=== PATIENT | male | born 1950 | race Caucasian/White ===

== ENCOUNTER 2017-12-16 16:56 | Emergency (ER) | payer MEDICARE, MEDICAID ==
[~2017-12-16] VITALS: Ht 175.3 cm; Wt 170.6 kg
[~2017-12-16 16:56] MED LIST: ACET-1008 PO; AMLO1CAP59 PO; COU1T PO; COU5T PO; DOCU100C40 PO; DULO-31 PO; DULR RC; FURO-150 PO; GABA-330 PO; LACT10SO PO; LEVO150T62 PO; MAGN-64 PO; NORCO10T PO; POLY17PO10 PO; SOTA80TA69 PO; ZOC40T PO; ZOLP10TA5 PO
[2017-12-16 19:26] LABS: BASOPHILS % (AUTO) 0.1 % (0-1); EOSINOPHILS # (AUTO) 0.3 X10'3 (0-0.9); EOSINOPHILS % (AUTO) 3.6 % (0-6); HEMATOCRIT 47.2 % (42.0-52.0); HEMOGLOBIN 15.8 g/dl (14.0-17.9); LYMPHOCYTES % (AUTO) 11.5 % (21-51); MEAN CORPUSCULAR HEMOGLOBIN 29.3 PG (27.0-31.0); MEAN CORPUSCULAR HGB CONC 33.4 % (33.0-36.5); MEAN CORPUSCULAR VOLUME 87.7 FL (78-98); MEAN PLATELET VOLUME 8.4 FL (7.4-10.4); MONOCYTES # (AUTO) 0.5 X10'3 (0-0.9); MONOCYTES % (AUTO) 5.1 % (2-12); NEUTROPHILS # (AUTO) 7.3 X10'3 (1.8-7.7); NEUTROPHILS % (AUTO) 79.7 % (42-75); PLATELET COUNT 174 X10'3 (140-440); RED BLOOD COUNT 5.39 X10'6 (4.70-6.10); RED CELL DISTRIBUTION WIDTH 15.3 % (11.5-14.5); WHITE BLOOD COUNT 9.1 X10'3 (4.5-11.0)
[2017-12-16 19:46] LABS: ALANINE AMINOTRANSFERASE 33 U/L (12-78); ALBUMIN 3.3 G/DL (3.4-5.0); ALBUMIN/GLOBULIN RATIO 0.7 (1.1-1.5); ALKALINE PHOSPHATASE 122 IU/L (46-116); ANION GAP 6 (8-16); ASPARTATE AMINO TRANSFERASE 25 U/L (10-37); BILIRUBIN,TOTAL 0.4 MG/DL (0.1-1.0); BLOOD UREA NITROGEN 26 MG/DL (7-18); BUN/CREATININE RATIO 21.5 (5.4-32.0); CALCIUM 8.8 MG/DL (8.5-10.1); CHLORIDE 99 MMOL/L (99-107); CREATININE 1.21 MG/DL (0.60-1.10); GLUCOSE 163 MG/DL (70-104); SODIUM 142 MMOL/L (135-145); TOTAL CARBON DIOXIDE 36.7 MMOL/L (24-32); TOTAL PROTEIN 7.9 G/DL (6.4-8.2); eGFR 60 ML/MIN
[2017-12-16] MEDS ORDERED: nystatin 15 GM powder TP STA (20:44)
[2017-12-16] MEDS ORDERED: CefTRIAXone 2gm/NS 100ml IVPB 100 ML IV ONE (20:45)
[2017-12-16] MEDS ORDERED: furosemide 10 MG/1 ML 10ml inj IV ONE (20:45)
[2017-12-16] MEDS ORDERED: potassium Cl 20 mEq SR tablet PO ONE (21:05)
[2017-12-16 21:20] LABS: CLARITY,URINE CLEAR (Clear); COLOR,URINE YELLOW (Yellow); GLUCOSE, URINE NEGATIVE (Neg); KETONES,URINE NEGATIVE (Neg); LEUKOCYTE ESTERASE ,URINE NEGATIVE (Neg); NITRITES, URINE NEGATIVE (Neg); OCCULT BLOOD,URINE NEGATIVE (Neg); PH,URINE 5.5 (4.8-8.0); PROTEIN,URINE NEGATIVE (Neg); UROBILINOGEN,URINE 0.2 E.U/dL (0.2-1.0)
[2017-12-16 21:27] LABS: UA COLLECTION TYPE CLN CATCH MIDSTREAM
[2017-12-16] MEDS ORDERED: MUPI22OI30 TOP (21:57)
[2017-12-16] MEDS ORDERED: POTA10TA10 PO (21:57)
[2017-12-16] MEDS ORDERED: NYSPWD TP (21:57)
[2017-12-16] MEDS ORDERED: CEPH500C2 PO (21:57)
[2017-12-16 22:23] VITALS: BP 165/111
== END 2017-12-16 22:37 | disposition home or self-care (01) ==
LOC: ER 16:58
DX: L03.116 Cellulitis of left lower limb (principal); L03.115 Cellulitis of right lower limb; I89.0 Lymphedema, not elsewhere classified; E87.6 Hypokalemia; B37.2 Candidiasis of skin and nail; I48.91 Unspecified atrial fibrillation; E78.00 Pure hypercholesterolemia, unspecified; I10 Essential (primary) hypertension; Z86.73 Personal history of transient ischemic attack (TIA), and cerebral infarction without residual deficits; Z86.718 Personal history of other venous thrombosis and embolism; Z98.890 Other specified postprocedural states; Z96.89 Presence of other specified functional implants; Z79.899 Other long term (current) drug therapy; Z79.01 Long term (current) use of anticoagulants
CPT/HCPCS: 36415; 80053; 81003; 83880; 85025; 96365; 96375; 99284; J0696; J1940

== ENCOUNTER 2019-01-30 20:57 | Inpatient (IN) | payer MEDICARE, MEDICAID | END 2019-02-02 16:45 | disposition home health service (06) | LOC: ER 20:57 → PCU 3S 01-31 07:23 | DX: A41.9 Sepsis, unspecified organism (principal); J18.1 Lobar pneumonia, unspecified organism; J96.01 Acute respiratory failure with hypoxia ==

== ENCOUNTER 2023-11-28 20:00 | Inpatient (IN) | payer MEDICARE, MEDICAID ==
[~2023-11-28] VITALS: Ht 182.9 cm; Wt 145.0 kg
[~2023-11-28 20:00] MED LIST changes: -AMLO1CAP59 PO; -COU1T PO; -COU5T PO; -DOCU100C40 PO; -DULR RC; +EMOL454C5 TOP; +FAMO20TA8 PO; -GABA-330 PO; +HYDR28CR14 TOP; -LACT10SO PO; +LISI10TA27 PO; -MAGN-64 PO; -NORCO10T PO; +POTA-192 PO; +RIVA20TA PO; +SIMV-42 PO; -SOTA80TA69 PO; -ZOC40T PO; -ZOLP10TA5 PO
[2023-11-28] MEDS: normal saline 1000ml 1,000 ML IV ONE (20:21)
[2023-11-28] MEDS: CefTRIAXone 2gm/D5W 50ml BAG 50 ML IV ONE (20:30)
[2023-11-28 20:46] LABS: BASOPHILS # (AUTO) 0.1 X10'3 (0-0.2); BASOPHILS % (AUTO) 0.5 % (0-1); EOSINOPHILS # (AUTO) 0.1 X10'3 (0-0.9); EOSINOPHILS % (AUTO) 1.3 % (0-6); HEMATOCRIT 50.1 % (42.0-52.0); HEMOGLOBIN 16.8 g/dl (14.0-17.9); LYMPHOCYTES # (AUTO) 1.7 X10'3 (1.1-4.8); LYMPHOCYTES % (AUTO) 16.6 % (21-51); MEAN CORPUSCULAR HGB CONC 33.4 g/dL (33.0-36.5); MEAN CORPUSCULAR VOLUME 92.8 FL (78-98); MEAN PLATELET VOLUME 8.4 FL (7.4-10.4); MONOCYTES # (AUTO) 0.3 X10'3 (0-0.9); MONOCYTES % (AUTO) 2.8 % (2-12); NEUTROPHILS # (AUTO) 8.2 X10'3 (1.8-7.7); NEUTROPHILS % (AUTO) 78.8 % (42-75); PLATELET COUNT 197 X10'3 (140-440); WHITE BLOOD COUNT 10.5 X10'3 (4.5-11.0)
[2023-11-28 20:53] LABS: ALANINE AMINOTRANSFERASE 25 U/L (12-78); ALBUMIN 3.2 G/DL (3.4-5.0); ALBUMIN/GLOBULIN RATIO 0.7 (1.1-1.5); ALKALINE PHOSPHATASE 97 IU/L (46-116); ANION GAP 8 (8-16); ASPARTATE AMINO TRANSFERASE 29 U/L (10-37); BILIRUBIN,TOTAL 1.1 MG/DL (0.1-1.0); BLOOD UREA NITROGEN 19 MG/DL (7-18); BUN/CREATININE RATIO 13.7 (10.0-20.0); CALCIUM 9.2 MG/DL (8.5-10.1); CHLORIDE 106 MMOL/L (99-107); CREATININE 1.39 MG/DL (0.60-1.10); GLUCOSE 200 MG/DL (70-104); POTASSIUM 3.5 MMOL/L (3.5-5.1); SODIUM 147 MMOL/L (135-145); TOTAL CARBON DIOXIDE 33.4 MMOL/L (24-32); TOTAL PROTEIN 7.6 G/DL (6.4-8.2); eCRCL 51 ML/MIN; eGFR 50 ML/MIN
[2023-11-28 21:01] LABS: PRO BRAIN NATRIURETIC PEPTIDE 714 PG/ML (0-125)
[2023-11-28] MEDS ORDERED: acetaminophen 325mg tablet PO ONE (23:10)
[2023-11-28] MEDS: normal saline 1000ML IV soln IVB ONE (23:39)
[2023-11-29] VITALS (9 sets, daily range): BP systolic 108–152; BP diastolic 60–86; PULSE 67–90; RESP 11–22; TEMP 97.7–97.9; O2SAT 92–99
[2023-11-29] MEDS: acetaminophen 325mg tablet PO ONE ×2 (00:05→00:18)
[2023-11-29 00:40] LABS: BILIRUBIN,URINE SMALL (Neg); CLARITY,URINE CLEAR (Clear); COLOR,URINE AMBER (Yellow); GLUCOSE, URINE 100 mg/dl (Neg); KETONES,URINE NEGATIVE (Neg); LEUKOCYTE ESTERASE ,URINE NEGATIVE (Neg); NITRITES, URINE NEGATIVE (Neg); OCCULT BLOOD,URINE TRACE-INTACT (Neg); PH,URINE 6.5 (4.8-8.0); PROTEIN,URINE 100 mg/dl (Neg)
[2023-11-29] MEDS ORDERED: magnesium hydroxide 30ml (MOM) UD suspension PO PRN (00:45)
[2023-11-29] MEDS ORDERED: magnesium 2GM in 50ml NS 50 ML IV PRN (00:45)
[2023-11-29] MEDS ORDERED: ondansetron/PF 4mg/2ml inj IV PRN (00:45)
[2023-11-29] MEDS ORDERED: magnesium 4gm in 100ml NS 100 ML IV PRN (00:45)
[2023-11-29] MEDS ORDERED: normal saline 1000ml 1,000 ML IV SCH (00:45)
[2023-11-29] MEDS ORDERED: potassium Cl 20 mEq SR tablet PO PRN ×2 (00:45)
[2023-11-29] MEDS ORDERED: mag hydrox/Alum hydrox/simeth 30ml oral suspension PO PRN (00:45)
[2023-11-29] MEDS ORDERED: magnesium Cl slow-release 64mg tablet PO PRN (00:45)
[2023-11-29] MEDS ORDERED: acetaminophen 650mg rectal suppository RC PRN (00:45)
[2023-11-29] MEDS ORDERED: potassium Cl 40MEQ/1/2NS 520ml 520 ML IV PRN (00:45)
[2023-11-29] MEDS ORDERED: acetaminophen 325mg tablet PO PRN (00:45)
[2023-11-29 00:49] LABS: UA COLLECTION TYPE FOLEY CATH
[2023-11-29] MEDS: normal saline 500ml IV soln 500 ML IV ONE (00:50)
[2023-11-29] MEDS ORDERED: LOP12.5T PO (00:59)
[2023-11-29 01:00] LABS: MUCUS STRANDS FEW /LPF (Neg)
[2023-11-29 01:03] LABS: WBC,URINE 0-4 /HPF (0-4)
[2023-11-29 01:06] LABS: SQUAMOUS EPITHELIAL CELL,UR FEW /LPF (FEW)
[2023-11-29 01:07] LABS: TRANSITIONAL EPI CELLS,URINE FEW /HPF
[2023-11-29 01:10] LABS: BACTERIA,URINE FEW /HPF (Neg)
[2023-11-29 01:30] LABS: D-DIMER 6.96 MG/L FEU (0-0.50)
[2023-11-29] MEDS: dextrose 5%-water 1,000 ML IV SCH (01:50)
[2023-11-29 02:33] LABS: CREATINE KINASE 117 U/L (39-308); LIPASE 30 U/L (16-77); THYROID STIMULATING HORMONE 1.24 ulU/ml (0.34-4.50)
[2023-11-29] MEDS: ipratropium/albuterol 3ml nebule NEB SCH (04:55)
[2023-11-29] MEDS: K and/or MAG REPLACEMENT MC SCH (08:00)
[2023-11-29 08:12] LABS: APTT 33 SECONDS (22-32); INR 1.5 INR; PROTHROMBIN TIME 15.5 SECONDS (9.0-12.0)
[2023-11-29] MEDS ORDERED: iohexol 350MG/ML 100ml bottle IV ONE (09:51)
[2023-11-29] MEDS: CefTRIAXone/D5W-Rocephin 1gm 50 ML IV SCH (10:28)
[2023-11-29] MEDS: azithromycin/NS 500mg/250ml 250 ML IV SCH (10:28)
[2023-11-29] MEDS: famotidine 20mg tablet PO SCH (10:30)
[2023-11-29] MEDS: levoTHYROXINE 100mcg tablet PO SCH (10:30)
[2023-11-29 11:23] LABS: BASOPHILS % (AUTO) 0.4 % (0-1); EOSINOPHILS # (AUTO) 0.1 X10'3 (0-0.9); HEMATOCRIT 44.5 % (42.0-52.0); HEMOGLOBIN 14.6 g/dl (14.0-17.9); MEAN CORPUSCULAR HEMOGLOBIN 30.9 PG (27.0-31.0); MEAN CORPUSCULAR HGB CONC 32.9 g/dL (33.0-36.5); MEAN PLATELET VOLUME 8.4 FL (7.4-10.4); MONOCYTES # (AUTO) 0.7 X10'3 (0-0.9); MONOCYTES % (AUTO) 7.7 % (2-12); NEUTROPHILS % (AUTO) 79.9 % (42-75); PLATELET COUNT 146 X10'3 (140-440); RED BLOOD COUNT 4.73 X10'6 (4.70-6.10); RED CELL DISTRIBUTION WIDTH 14.6 % (11.5-14.5); WHITE BLOOD COUNT 8.8 X10'3 (4.5-11.0)
[2023-11-29 11:48] LABS: ALANINE AMINOTRANSFERASE 21 U/L (12-78); ALBUMIN 2.6 G/DL (3.4-5.0); ALBUMIN/GLOBULIN RATIO 0.7 (1.1-1.5); ALKALINE PHOSPHATASE 80 IU/L (46-116); ANION GAP 7 (8-16); ASPARTATE AMINO TRANSFERASE 34 U/L (10-37); BILIRUBIN,TOTAL 0.6 MG/DL (0.1-1.0); BLOOD UREA NITROGEN 22 MG/DL (7-18); BUN/CREATININE RATIO 18.6 (10.0-20.0); CALCIUM 7.9 MG/DL (8.5-10.1); CHLORIDE 110 MMOL/L (99-107); CREATININE 1.18 MG/DL (0.60-1.10); GLUCOSE 139 MG/DL (70-104); POTASSIUM 4.1 MMOL/L (3.5-5.1); SODIUM 149 MMOL/L (135-145); TOTAL CARBON DIOXIDE 31.9 MMOL/L (24-32); TOTAL PROTEIN 6.3 G/DL (6.4-8.2); eCRCL 60 ML/MIN; eGFR 60 ML/MIN
[2023-11-29] MEDS: rivaroxaban 20mg tablet PO SCH (17:50)
[2023-11-29] MEDS: atorvastatin 10mg tablet PO SCH (20:09)
[2023-11-29] MEDS ORDERED: ipratropium/albuterol 3ml nebule NEB PRN (21:25)
[2023-11-30] VITALS (12 sets, daily range): BP systolic 119–153; BP diastolic 68–91; PULSE 64–87; RESP 13–18; TEMP 97.2–98.2; O2SAT 93–99
[2023-11-30 07:03] LABS: ALANINE AMINOTRANSFERASE 23 U/L (12-78); ALBUMIN 2.9 G/DL (3.4-5.0); ALBUMIN/GLOBULIN RATIO 0.8 (1.1-1.5); ALKALINE PHOSPHATASE 78 IU/L (46-116); ANION GAP 1 (8-16); ASPARTATE AMINO TRANSFERASE 29 U/L (10-37); BILIRUBIN,TOTAL 0.5 MG/DL (0.1-1.0); BLOOD UREA NITROGEN 22 MG/DL (7-18); BUN/CREATININE RATIO 21.6 (10.0-20.0); CALCIUM 8.7 MG/DL (8.5-10.1); CHLORIDE 110 MMOL/L (99-107); CREATININE 1.02 MG/DL (0.60-1.10); GLUCOSE 125 MG/DL (70-104); POTASSIUM 4.6 MMOL/L (3.5-5.1); SODIUM 147 MMOL/L (135-145); TOTAL CARBON DIOXIDE 36.4 MMOL/L (24-32); TOTAL PROTEIN 6.6 G/DL (6.4-8.2); eCRCL 70 ML/MIN; eGFR 71 ML/MIN
[2023-11-30 07:11] LABS: BASOPHILS % (AUTO) 0.5 % (0-1); EOSINOPHILS # (AUTO) 0.2 X10'3 (0-0.9); EOSINOPHILS % (AUTO) 2.2 % (0-6); HEMOGLOBIN 14.2 g/dl (14.0-17.9); LYMPHOCYTES # (AUTO) 1.5 X10'3 (1.1-4.8); LYMPHOCYTES % (AUTO) 15.4 % (21-51); MEAN CORPUSCULAR VOLUME 94.1 FL (78-98); MEAN PLATELET VOLUME 8.7 FL (7.4-10.4); MONOCYTES # (AUTO) 0.8 X10'3 (0-0.9); MONOCYTES % (AUTO) 7.7 % (2-12); NEUTROPHILS # (AUTO) 7.3 X10'3 (1.8-7.7); NEUTROPHILS % (AUTO) 74.2 % (42-75); PLATELET COUNT 139 X10'3 (140-440); RED BLOOD COUNT 4.57 X10'6 (4.70-6.10); RED CELL DISTRIBUTION WIDTH 14.6 % (11.5-14.5); WHITE BLOOD COUNT 9.9 X10'3 (4.5-11.0)
[2023-11-30 07:19] LABS: C DIFF ANTIGEN NEGATIVE (NEGATIVE); C DIFF SPECIMEN=DIARRHEA? ACCEPTABLE; C DIFFICILE TOXINS A&B NEGATIVE (Neg)
[2023-12-01] VITALS (10 sets, daily range): BP systolic 93–150; BP diastolic 49–94; PULSE 63–89; RESP 12–24; TEMP 97.7–98; O2SAT 92–97
[2023-12-01 17:10] LABS: BASOPHILS # (AUTO) 0.3 X10'3 (0-0.2); EOSINOPHILS # (AUTO) 0.3 X10'3 (0-0.9); EOSINOPHILS % (AUTO) 3.8 % (0-6); HEMATOCRIT 41.3 % (42.0-52.0); HEMOGLOBIN 13.8 g/dl (14.0-17.9); LYMPHOCYTES # (AUTO) 1.2 X10'3 (1.1-4.8); LYMPHOCYTES % (AUTO) 16.8 % (21-51); MEAN CORPUSCULAR HEMOGLOBIN 31.1 PG (27.0-31.0); MEAN CORPUSCULAR HGB CONC 33.4 g/dL (33.0-36.5); MEAN PLATELET VOLUME 8.5 FL (7.4-10.4); MONOCYTES # (AUTO) 0.5 X10'3 (0-0.9); MONOCYTES % (AUTO) 6.9 % (2-12); NEUTROPHILS # (AUTO) 4.9 X10'3 (1.8-7.7); NEUTROPHILS % (AUTO) 68.5 % (42-75); PLATELET COUNT 137 X10'3 (140-440); RED BLOOD COUNT 4.44 X10'6 (4.70-6.10); RED CELL DISTRIBUTION WIDTH 14.8 % (11.5-14.5); WHITE BLOOD COUNT 7.1 X10'3 (4.5-11.0)
[2023-12-01 17:24] LABS: ALANINE AMINOTRANSFERASE 22 U/L (12-78); ALBUMIN 2.5 G/DL (3.4-5.0); ALBUMIN/GLOBULIN RATIO 0.7 (1.1-1.5); ALKALINE PHOSPHATASE 79 IU/L (46-116); ANION GAP 3 (8-16); ASPARTATE AMINO TRANSFERASE 22 U/L (10-37); BILIRUBIN,TOTAL 0.3 MG/DL (0.1-1.0); BLOOD UREA NITROGEN 11 MG/DL (7-18); BUN/CREATININE RATIO 12.8 (10.0-20.0); CALCIUM 8.2 MG/DL (8.5-10.1); CHLORIDE 110 MMOL/L (99-107); CREATININE 0.86 MG/DL (0.60-1.10); GLUCOSE 116 MG/DL (70-104); POTASSIUM 4.2 MMOL/L (3.5-5.1); SODIUM 144 MMOL/L (135-145); TOTAL CARBON DIOXIDE 30.9 MMOL/L (24-32); TOTAL PROTEIN 6.2 G/DL (6.4-8.2); eCRCL 83 ML/MIN; eGFR 87 ML/MIN
[2023-12-02] VITALS (7 sets, daily range): BP systolic 121–165; BP diastolic 72–95; PULSE 64–84; RESP 16–22; TEMP 97.3–98.4; O2SAT 90–96
[2023-12-02 06:52] LABS: BASOPHILS % (AUTO) 0.7 % (0-1); EOSINOPHILS # (AUTO) 0.2 X10'3 (0-0.9); EOSINOPHILS % (AUTO) 3.5 % (0-6); HEMATOCRIT 40.9 % (42.0-52.0); HEMOGLOBIN 13.6 g/dl (14.0-17.9); LYMPHOCYTES # (AUTO) 1.6 X10'3 (1.1-4.8); LYMPHOCYTES % (AUTO) 23.2 % (21-51); MEAN CORPUSCULAR HEMOGLOBIN 30.9 PG (27.0-31.0); MEAN CORPUSCULAR HGB CONC 33.2 g/dL (33.0-36.5); MEAN CORPUSCULAR VOLUME 93.2 FL (78-98); MEAN PLATELET VOLUME 8.2 FL (7.4-10.4); MONOCYTES # (AUTO) 0.5 X10'3 (0-0.9); MONOCYTES % (AUTO) 7.9 % (2-12); NEUTROPHILS # (AUTO) 4.3 X10'3 (1.8-7.7); NEUTROPHILS % (AUTO) 64.7 % (42-75); PLATELET COUNT 135 X10'3 (140-440); RED BLOOD COUNT 4.39 X10'6 (4.70-6.10); RED CELL DISTRIBUTION WIDTH 14.7 % (11.5-14.5); WHITE BLOOD COUNT 6.7 X10'3 (4.5-11.0)
[2023-12-02 07:10] LABS: ALANINE AMINOTRANSFERASE 19 U/L (12-78); ALBUMIN 2.3 G/DL (3.4-5.0); ALBUMIN/GLOBULIN RATIO 0.6 (1.1-1.5); ALKALINE PHOSPHATASE 70 IU/L (46-116); ANION GAP 4 (8-16); ASPARTATE AMINO TRANSFERASE 17 U/L (10-37); BILIRUBIN,TOTAL 0.4 MG/DL (0.1-1.0); BLOOD UREA NITROGEN 11 MG/DL (7-18); BUN/CREATININE RATIO 13.4 (10.0-20.0); CALCIUM 8.4 MG/DL (8.5-10.1); CHLORIDE 110 MMOL/L (99-107); CREATININE 0.82 MG/DL (0.60-1.10); GLUCOSE 95 MG/DL (70-104); POTASSIUM 4.1 MMOL/L (3.5-5.1); SODIUM 144 MMOL/L (135-145); TOTAL CARBON DIOXIDE 30.4 MMOL/L (24-32); TOTAL PROTEIN 6.1 G/DL (6.4-8.2); eCRCL 87 ML/MIN; eGFR > 90 ML/MIN
[2023-12-02 11:16] LABS: ABG HCO3 30.7 mmol/L (22.0-26.0); ABG OXYGEN SATURATION 90.8 % (94-97); ABG PCO2 (T) 53.9 mmHg (35.0-48.0); ABG PH (T) 7.373 (7.340-7.440); ABG PO2 (T) 60.5 mmHg (75.0-100.0); ALLEN'S TEST POSITIVE; FCOHb 0.8 % (0.0-3.9); FHHb 9.1 % (0.0-5.0); FO2Hb 90.1 % (94-97); MODE RA; TOTAL HEMOGLOBIN 14.7 G/dl (14.0-17.9)
[2023-12-03 02:00] VITALS: BP 163/105; PULSE 64; RESP 18; TEMP 98.4; O2SAT 93
[2023-12-03 06:00] VITALS: BP 143/93; PULSE 70; RESP 12; TEMP 98.1; O2SAT 97
[2023-12-03 07:17] LABS: BASOPHILS # (AUTO) 0.1 X10'3 (0-0.2); BASOPHILS % (AUTO) 0.7 % (0-1); EOSINOPHILS # (AUTO) 0.2 X10'3 (0-0.9); HEMATOCRIT 42.9 % (42.0-52.0); HEMOGLOBIN 14.4 g/dl (14.0-17.9); LYMPHOCYTES # (AUTO) 1.4 X10'3 (1.1-4.8); LYMPHOCYTES % (AUTO) 19.1 % (21-51); MEAN CORPUSCULAR HEMOGLOBIN 30.9 PG (27.0-31.0); MEAN CORPUSCULAR HGB CONC 33.5 g/dL (33.0-36.5); MEAN CORPUSCULAR VOLUME 92.2 FL (78-98); MEAN PLATELET VOLUME 8.3 FL (7.4-10.4); MONOCYTES # (AUTO) 0.6 X10'3 (0-0.9); MONOCYTES % (AUTO) 8.1 % (2-12); NEUTROPHILS # (AUTO) 5.1 X10'3 (1.8-7.7); NEUTROPHILS % (AUTO) 69.1 % (42-75); PLATELET COUNT 148 X10'3 (140-440); RED BLOOD COUNT 4.66 X10'6 (4.70-6.10); RED CELL DISTRIBUTION WIDTH 14.1 % (11.5-14.5); WHITE BLOOD COUNT 7.3 X10'3 (4.5-11.0)
[2023-12-03 07:35] LABS: ALANINE AMINOTRANSFERASE 21 U/L (12-78); ALBUMIN 2.4 G/DL (3.4-5.0); ALBUMIN/GLOBULIN RATIO 0.6 (1.1-1.5); ALKALINE PHOSPHATASE 78 IU/L (46-116); ANION GAP 6 (8-16); ASPARTATE AMINO TRANSFERASE 20 U/L (10-37); BILIRUBIN,TOTAL 0.4 MG/DL (0.1-1.0); BLOOD UREA NITROGEN 11 MG/DL (7-18); BUN/CREATININE RATIO 15.5 (10.0-20.0); CALCIUM 8.3 MG/DL (8.5-10.1); CHLORIDE 109 MMOL/L (99-107); CREATININE 0.71 MG/DL (0.60-1.10); GLUCOSE 97 MG/DL (70-104); POTASSIUM 3.9 MMOL/L (3.5-5.1); SODIUM 145 MMOL/L (135-145); TOTAL CARBON DIOXIDE 30.5 MMOL/L (24-32); TOTAL PROTEIN 6.4 G/DL (6.4-8.2); eCRCL 100 ML/MIN; eGFR > 90 ML/MIN
[2023-12-03] MEDS: lisinopril 5mg tablet PO SCH (09:13)
[2023-12-03 10:21] VITALS: PULSE 90; RESP 18; O2SAT 90
[2023-12-03 11:00] VITALS: BP 126/85; PULSE 92; RESP 16; TEMP 97; O2SAT 94
[2023-12-03] MEDS ORDERED: metoprolol tartrate 12.5mg (1/2 tablet) PO SCH (20:00)
== END 2023-12-03 15:57 | DRG 871 ==
LOC: ER 20:01 → ED HOLD 11-29 00:47 → PCU 3S 11-29 09:30
PROVIDERS: ADMIT Family Medicine; ATTEND Internal Medicine
PROC: B32T1ZZ Computerized Tomography (CT Scan) of Left Pulmonary Artery using Low Osmolar Contrast (ICD-10-PCS; principal; 2023-11-29)
PROC: B3201ZZ Computerized Tomography (CT Scan) of Thoracic Aorta using Low Osmolar Contrast (ICD-10-PCS; 2023-11-29)
PROC: B32S1ZZ Computerized Tomography (CT Scan) of Right Pulmonary Artery using Low Osmolar Contrast (ICD-10-PCS; 2023-11-29)
DX: A41.9 Sepsis, unspecified organism (principal); J18.9 Pneumonia, unspecified organism; J96.01 Acute respiratory failure with hypoxia; N17.0 Acute kidney failure with tubular necrosis; E87.0 Hyperosmolality and hypernatremia; Z68.41 Body mass index [BMI] 40.0-44.9, adult; I11.0 Hypertensive heart disease with heart failure; I48.91 Unspecified atrial fibrillation; I50.9 Heart failure, unspecified; E78.00 Pure hypercholesterolemia, unspecified; E03.9 Hypothyroidism, unspecified; Z20.822 Contact with and (suspected) exposure to COVID-19; I95.9 Hypotension, unspecified; F32.A Depression, unspecified; E66.01 Morbid (severe) obesity due to excess calories; G47.33 Obstructive sleep apnea (adult) (pediatric); K21.9 Gastro-esophageal reflux disease without esophagitis; E86.0 Dehydration; Z86.73 Personal history of transient ischemic attack (TIA), and cerebral infarction without residual deficits; Z95.0 Presence of cardiac pacemaker; Z86.718 Personal history of other venous thrombosis and embolism; Z79.01 Long term (current) use of anticoagulants; Z79.899 Other long term (current) drug therapy
CPT/HCPCS: 36415; 36600; 70450; 71045; 71275; 80053; 81001; 81003; 82550; 82803; 83605; 83690; 83880; 84145; 84443; 84484; 85018; 85025; 85379; 85610; 85730; 87040; 87324; 87449; 87502; 87503; 87634; 87811; 93005; 93880; 94640; 94760; 97110; 97161; 97530; 99285; A4615; A6212; A6213; G0378; J0456; J0696; J3490; J7030; J7040; J7070; Q9967

== ENCOUNTER 2024-05-26 14:41 | Emergency (ER) | payer MEDICARE, MEDICAID ==
[~2024-05-26] VITALS: Ht 182.9 cm; Wt 158.4 kg
[~2024-05-26 14:41] MED LIST changes: -ACET-1008 PO; -DULO-31 PO; -EMOL454C5 TOP; -HYDR28CR14 TOP; +LOP12.5T PO; -POLY17PO10 PO
[2024-05-26] MEDS: normal saline 1000ML IV soln IV ONE (14:55)
[2024-05-26 15:12] LABS: BILIRUBIN,URINE NEGATIVE (Neg); CLARITY,URINE CLEAR (Clear); COLOR,URINE YELLOW (Yellow); GLUCOSE, URINE NEGATIVE (Neg); KETONES,URINE NEGATIVE (Neg); LEUKOCYTE ESTERASE ,URINE NEGATIVE (Neg); NITRITES, URINE NEGATIVE (Neg); OCCULT BLOOD,URINE NEGATIVE (Neg); PROTEIN,URINE NEGATIVE (Neg); UROBILINOGEN,URINE 0.2 E.U/dL (0.2-1.0)
[2024-05-26 15:53] LABS: BASOPHILS % (AUTO) 0.3 % (0-1); EOSINOPHILS # (AUTO) 0.1 X10'3 (0-0.9); EOSINOPHILS % (AUTO) 0.9 % (0-6); HEMATOCRIT 46.2 % (42.0-52.0); HEMOGLOBIN 15.3 g/dl (14.0-17.9); LYMPHOCYTES % (AUTO) 8.9 % (21-51); MEAN CORPUSCULAR HEMOGLOBIN 30.4 PG (27.0-31.0); MEAN CORPUSCULAR HGB CONC 33.1 g/dL (33.0-36.5); MEAN CORPUSCULAR VOLUME 92.1 FL (78-98); MEAN PLATELET VOLUME 8.1 FL (7.4-10.4); MONOCYTES # (AUTO) 0.7 X10'3 (0-0.9); MONOCYTES % (AUTO) 6.4 % (2-12); NEUTROPHILS # (AUTO) 9.1 X10'3 (1.8-7.7); NEUTROPHILS % (AUTO) 83.5 % (42-75); PLATELET COUNT 196 X10'3 (140-440); RED BLOOD COUNT 5.01 X10'6 (4.70-6.10); RED CELL DISTRIBUTION WIDTH 14.8 % (11.5-14.5); WHITE BLOOD COUNT 10.9 X10'3 (4.5-11.0)
[2024-05-26 15:54] LABS: UA COLLECTION TYPE CLN CATCH MIDSTREAM
[2024-05-26 16:08] LABS: ALANINE AMINOTRANSFERASE 17 U/L (12-78); ALBUMIN 2.8 G/DL (3.4-5.0); ALBUMIN/GLOBULIN RATIO 0.7 (1.1-1.5); ALKALINE PHOSPHATASE 67 IU/L (46-116); ANION GAP 1 (8-16); ASPARTATE AMINO TRANSFERASE 19 U/L (10-37); BILIRUBIN,TOTAL 0.6 MG/DL (0.1-1.0); BLOOD UREA NITROGEN 17 MG/DL (7-18); BUN/CREATININE RATIO 17.2 (10.0-20.0); CALCIUM 8.3 MG/DL (8.5-10.1); CHLORIDE 106 MMOL/L (99-107); CREATININE 0.99 MG/DL (0.60-1.10); GLUCOSE 116 MG/DL (70-104); MAGNESIUM 1.6 MG/DL (1.5-2.4); POTASSIUM 3.8 MMOL/L (3.5-5.1); SODIUM 142 MMOL/L (135-145); TOTAL CARBON DIOXIDE 34.9 MMOL/L (24-32); TOTAL PROTEIN 6.8 G/DL (6.4-8.2); eCRCL 71 ML/MIN; eGFR 74 ML/MIN
[2024-05-26] MEDS ORDERED: OXYGEN NASALCANN (16:15)
[2024-05-26 20:05] VITALS: BP 107/71; PULSE 81; RESP 16; TEMP 98.8; O2SAT 94
== END 2024-05-26 20:08 | disposition home or self-care (01) ==
LOC: ER 14:42
DX: R41.82 Altered mental status, unspecified (principal); E86.0 Dehydration; I48.91 Unspecified atrial fibrillation; I11.0 Hypertensive heart disease with heart failure; I50.9 Heart failure, unspecified; E78.00 Pure hypercholesterolemia, unspecified; E03.9 Hypothyroidism, unspecified; F32.A Depression, unspecified; Z86.73 Personal history of transient ischemic attack (TIA), and cerebral infarction without residual deficits; Z86.718 Personal history of other venous thrombosis and embolism; Z98.890 Other specified postprocedural states; Z95.0 Presence of cardiac pacemaker; Z20.822 Contact with and (suspected) exposure to COVID-19; Z79.899 Other long term (current) drug therapy
CPT/HCPCS: 36415; 70450; 71045; 80053; 81003; 83605; 83735; 84145; 85025; 87040; 87811; 93005; 96360; 99285; J7030

== ENCOUNTER 2024-06-01 13:05 | Inpatient (IN) | payer MEDICARE, MEDICAID ==
[2024-06-01] VITALS (15 sets, daily range): BP systolic 90–92; BP diastolic 52–64; PULSE 63–86; RESP 15–22; TEMP 97.3; O2SAT 90–95
[~2024-06-01] VITALS: Ht 182.9 cm; Wt 155.0 kg
[~2024-06-01 13:05] MED LIST changes: +OXYGEN NASALCANN
[2024-06-01 15:35] LABS: BASOPHILS # (AUTO) 0.1 X10'3 (0-0.2); BASOPHILS % (AUTO) 0.6 % (0-1); EOSINOPHILS # (AUTO) 0.3 X10'3 (0-0.9); EOSINOPHILS % (AUTO) 2.8 % (0-6); HEMOGLOBIN 14.2 g/dl (14.0-17.9); LYMPHOCYTES # (AUTO) 1.6 X10'3 (1.1-4.8); LYMPHOCYTES % (AUTO) 14.9 % (21-51); MEAN CORPUSCULAR HEMOGLOBIN 30.6 PG (27.0-31.0); MEAN CORPUSCULAR VOLUME 92.7 FL (78-98); MEAN PLATELET VOLUME 8.6 FL (7.4-10.4); MONOCYTES % (AUTO) 9.6 % (2-12); NEUTROPHILS # (AUTO) 7.8 X10'3 (1.8-7.7); NEUTROPHILS % (AUTO) 72.1 % (42-75); PLATELET COUNT 197 X10'3 (140-440); RED BLOOD COUNT 4.64 X10'6 (4.70-6.10); WHITE BLOOD COUNT 10.8 X10'3 (4.5-11.0)
[2024-06-01 15:42] LABS: ALBUMIN 2.2 G/DL (3.4-5.0); ANION GAP 4 (8-16); BLOOD UREA NITROGEN 18 MG/DL (7-18); BUN/CREATININE RATIO 19.4 (10.0-20.0); CALCIUM 8.7 MG/DL (8.5-10.1); CHLORIDE 104 MMOL/L (99-107); CREATININE 0.93 MG/DL (0.60-1.10); GLUCOSE 109 MG/DL (70-104); POTASSIUM 3.6 MMOL/L (3.5-5.1); SODIUM 142 MMOL/L (135-145); TOTAL CARBON DIOXIDE 33.7 MMOL/L (24-32); eCRCL 75 ML/MIN; eGFR 79 ML/MIN
[2024-06-01] MEDS: methylPREDNISolone sod succ 125mg/2ml vial IV ONE (17:19)
[2024-06-01 17:28] LABS: APTT 31 SECONDS (22-32); INR 1.3 INR; PROTHROMBIN TIME 13.5 SECONDS (9.0-12.0)
[2024-06-01 17:31] LABS: ABG BASE EXCESS 6.3 mmol/L (-2.0-2.0); ABG HCO3 33.9 mmol/L (22.0-26.0); ABG OXYGEN SATURATION 84.2 % (92-98.5); ABG PCO2 (T) 60.8 mmHg (35.0-48.0); ABG PH (T) 7.364 (7.340-7.440); ABG PO2 (T) 50.3 mmHg (75.0-100.0); ALLEN'S TEST POSITIVE; FCOHb 1.3 % (0.5-1.5); FHHb 15.6 % (0.0-5.0); FLOW 2 L/min; FMetHb 0.2 % (0.0-1.5); FO2Hb 82.9 % (94-97); MODE NC; TOTAL HEMOGLOBIN 15.5 G/dl (14.0-17.9)
[2024-06-01 17:37] LABS: PRO BRAIN NATRIURETIC PEPTIDE 446 PG/ML (0-450)
[2024-06-01] MEDS: ipratropium/albuterol 3ml nebule NEB ONE (17:41)
[2024-06-01] MEDS ORDERED: mag hydrox/Alum hydrox/simeth 30ml oral suspension PO PRN (18:15)
[2024-06-01] MEDS ORDERED: potassium Cl 40MEQ/1/2NS 520ml 520 ML IV PRN (18:15)
[2024-06-01] MEDS ORDERED: magnesium sulf-water 2g/50mL 50 ML IV PRN (18:15)
[2024-06-01] MEDS ORDERED: ondansetron/PF 4mg/2ml inj IV PRN (18:15)
[2024-06-01] MEDS ORDERED: HYDROcodone/acetaminophen 5mg/325mg tablet PO PRN (18:15)
[2024-06-01] MEDS ORDERED: HYDROcodone/acetaminophen 10/325mg tab PO PRN (18:15)
[2024-06-01] MEDS ORDERED: bisacodyl 10mg suppository rectal RC PRN (18:15)
[2024-06-01] MEDS ORDERED: albuterol 2.5 MG/3 ML nebule NEB PRN (18:15)
[2024-06-01] MEDS ORDERED: magnesium sulf-water 4G/100mL 100 ML IV PRN (18:15)
[2024-06-01] MEDS ORDERED: acetaminophen 325mg tablet PO PRN (18:15)
[2024-06-01] MEDS ORDERED: potassium Cl 20 mEq SR tablet PO PRN ×2 (18:15)
[2024-06-01] MEDS: CefTRIAXone 2gm/D5W 50ml BAG 50 ML IV ONE (18:21)
[2024-06-01] MEDS ORDERED: FAMO20TA10 PO (19:01)
[2024-06-01] MEDS ORDERED: METO-384 PO (19:01)
[2024-06-01] MEDS ORDERED: POTA-207 PO (19:01)
[2024-06-01] MEDS ORDERED: CARB-268 EACHEYE (19:01)
[2024-06-01] MEDS: azithromycin/NS 500mg/250ml 250 ML IV ONE (19:14)
[2024-06-01] MEDS: normal saline 1000ml 1,000 ML IV SCH (19:25)
[2024-06-01] MEDS: albumin (human) 25% 100 ML IV solution IV ONE (19:36)
[2024-06-01] MEDS: ipratropium/albuterol 3ml nebule NEB SCH (19:45)
[2024-06-01] MEDS: K and/or MAG REPLACEMENT MC SCH (20:00)
[2024-06-01] MEDS: docusate sod 100mg capsule PO SCH (20:00)
[2024-06-01] MEDS: enoxaparin 40mg/0.4ml syringe SQ SCH (20:58)
[2024-06-01] MEDS: moxifloxacin 0.5% ophthalmic drops 3ml RIGHTEYE SCH (20:59)
[2024-06-01] MEDS: methylPREDNISolone sod succ 125mg/2ml vial IV SCH (21:00)
[2024-06-01 23:39] LABS: ABG BASE EXCESS 4.1 mmol/L (-2.0-2.0); ABG HCO3 33.3 mmol/L (22.0-26.0); ABG PCO2 (T) 71.3 mmHg (35.0-48.0); ABG PH (T) 7.285 (7.340-7.440); ABG PO2 (T) 72.5 mmHg (75.0-100.0); ALLEN'S TEST POSITIVE; FCOHb 1.1 % (0.5-1.5); FHHb 6.9 % (0.0-5.0); FMetHb 0.3 % (0.0-1.5); FO2Hb 91.7 % (94-97); MODE MASK - BIPAP; PATIENT TEMPERATURE 36.5; TOTAL HEMOGLOBIN 14.2 G/dl (14.0-17.9)
[2024-06-02] VITALS (35 sets, daily range): BP systolic 75–106; BP diastolic 32–80; PULSE 61–101; RESP 10–22; TEMP 97–98; O2SAT 89–96
[2024-06-02] MEDS: normal saline 500ml IV soln 500 ML IV ONE (00:17)
[2024-06-02 01:23] LABS: ABG BASE EXCESS -1.2 mmol/L (-2.0-2.0); ABG HCO3 27.4 mmol/L (22.0-26.0); ABG OXYGEN SATURATION 94.6 % (92-98.5); ABG PCO2 (T) 61.7 mmHg (35.0-48.0); ABG PH (T) 7.262 (7.340-7.440); ABG PO2 (T) 79.5 mmHg (75.0-100.0); ALLEN'S TEST Modified; FHHb 5.3 % (0.0-5.0); FMetHb 0.3 % (0.0-1.5); FO2Hb 93.4 % (94-97); MODE bipap; PATIENT TEMPERATURE 36.5; RESPIRATORY RATE 16 b/min; TOTAL HEMOGLOBIN 14.4 G/dl (14.0-17.9)
[2024-06-02] MEDS: normal saline 1000ml 1,000 ML IV SCH (04:46)
[2024-06-02 05:37] LABS: D-DIMER 0.68 MG/L FEU (0-0.50)
[2024-06-02 05:53] LABS: ALANINE AMINOTRANSFERASE 15 U/L (12-78); ALBUMIN 2.6 G/DL (3.4-5.0); ALBUMIN/GLOBULIN RATIO 0.6 (1.1-1.5); ALKALINE PHOSPHATASE 76 IU/L (46-116); ANION GAP 6 (8-16); ASPARTATE AMINO TRANSFERASE 17 U/L (10-37); BILIRUBIN,TOTAL 0.5 MG/DL (0.1-1.0); BLOOD UREA NITROGEN 26 MG/DL (7-18); BUN/CREATININE RATIO 23.6 (10.0-20.0); CALCIUM 8.6 MG/DL (8.5-10.1); CHLORIDE 106 MMOL/L (99-107); GLUCOSE 143 MG/DL (70-104); MAGNESIUM 1.8 MG/DL (1.5-2.4); POTASSIUM 3.7 MMOL/L (3.5-5.1); SODIUM 143 MMOL/L (135-145); TOTAL CARBON DIOXIDE 31.2 MMOL/L (24-32); eCRCL 64 ML/MIN; eGFR 65 ML/MIN
[2024-06-02 05:54] LABS: BASOPHILS % (AUTO) 0.3 % (0-1); EOSINOPHILS % (AUTO) 0.1 % (0-6); HEMATOCRIT 42.5 % (42.0-52.0); LYMPHOCYTES # (AUTO) 0.5 X10'3 (1.1-4.8); LYMPHOCYTES % (AUTO) 5.6 % (21-51); MEAN CORPUSCULAR VOLUME 93.9 FL (78-98); MEAN PLATELET VOLUME 9.3 FL (7.4-10.4); MONOCYTES # (AUTO) 0.2 X10'3 (0-0.9); MONOCYTES % (AUTO) 2.3 % (2-12); NEUTROPHILS # (AUTO) 8.8 X10'3 (1.8-7.7); NEUTROPHILS % (AUTO) 91.7 % (42-75); PLATELET COUNT 172 X10'3 (140-440); RED BLOOD COUNT 4.52 X10'6 (4.70-6.10); RED CELL DISTRIBUTION WIDTH 14.8 % (11.5-14.5); WHITE BLOOD COUNT 9.6 X10'3 (4.5-11.0)
[2024-06-02] MEDS: CefTRIAXone/D5W-Rocephin 1gm 50 ML IV SCH (08:33)
[2024-06-02] MEDS: azithromycin 250mg tablet PO SCH (09:58)
[2024-06-02] MEDS ORDERED: CARBOXYMETHYLCELLULOSE SODIUM EACHEYE SCH (20:00)
[2024-06-02] MEDS: famotidine 20mg tablet PO SCH (20:38)
[2024-06-02] MEDS: HALLS - SOOTHE MENTHOL 1.8 MG cough drop LOZENGE MM PRN (20:38)
[2024-06-02] MEDS: rivaroxaban 20mg tablet PO SCH (20:39)
[2024-06-02] MEDS: simvastatin 20mg tablet PO SCH (20:40)
[2024-06-02] MEDS: polyvinyl alcohol eye drops 15ML BOTTLE EACHEYE SCH (20:41)
[2024-06-02] MEDS: nystatin 15 GM powder TP SCH (20:53)
[2024-06-02] MEDS: normal saline 1000ml 1,000 ML IV ONE (23:50)
[2024-06-03] VITALS (31 sets, daily range): BP systolic 81–111; BP diastolic 51–80; PULSE 62–95; RESP 11–21; TEMP 97.4–98.1; O2SAT 91–98
[2024-06-03 06:19] LABS: BASOPHILS % (AUTO) 0.2 % (0-1); EOSINOPHILS % (AUTO) 0 % (0-6); HEMATOCRIT 39.6 % (42.0-52.0); HEMOGLOBIN 12.7 g/dl (14.0-17.9); LYMPHOCYTES # (AUTO) 0.8 X10'3 (1.1-4.8); LYMPHOCYTES % (AUTO) 5.4 % (21-51); MEAN CORPUSCULAR HGB CONC 32.1 g/dL (33.0-36.5); MEAN CORPUSCULAR VOLUME 93.4 FL (78-98); MEAN PLATELET VOLUME 9.2 FL (7.4-10.4); MONOCYTES # (AUTO) 0.6 X10'3 (0-0.9); MONOCYTES % (AUTO) 4.1 % (2-12); NEUTROPHILS # (AUTO) 13.4 X10'3 (1.8-7.7); NEUTROPHILS % (AUTO) 90.3 % (42-75); PLATELET COUNT 190 X10'3 (140-440); RED BLOOD COUNT 4.24 X10'6 (4.70-6.10); RED CELL DISTRIBUTION WIDTH 15.1 % (11.5-14.5); WHITE BLOOD COUNT 14.8 X10'3 (4.5-11.0)
[2024-06-03 06:34] LABS: ALANINE AMINOTRANSFERASE 17 U/L (12-78); ALBUMIN 2.3 G/DL (3.4-5.0); ALBUMIN/GLOBULIN RATIO 0.5 (1.1-1.5); ALKALINE PHOSPHATASE 56 IU/L (46-116); ANION GAP 8 (8-16); ASPARTATE AMINO TRANSFERASE 14 U/L (10-37); BILIRUBIN,TOTAL 0.2 MG/DL (0.1-1.0); BLOOD UREA NITROGEN 36 MG/DL (7-18); BUN/CREATININE RATIO 39.1 (10.0-20.0); CALCIUM 8.7 MG/DL (8.5-10.1); CHLORIDE 108 MMOL/L (99-107); CREATININE 0.92 MG/DL (0.60-1.10); GLUCOSE 155 MG/DL (70-104); MAGNESIUM 1.9 MG/DL (1.5-2.4); POTASSIUM 3.8 MMOL/L (3.5-5.1); SODIUM 144 MMOL/L (135-145); TOTAL CARBON DIOXIDE 28.1 MMOL/L (24-32); TOTAL PROTEIN 6.6 G/DL (6.4-8.2); eCRCL 76 ML/MIN; eGFR 80 ML/MIN
[2024-06-03 06:59] LABS: TOTAL CELLS COUNTED 100
[2024-06-03 07:01] LABS: PLATELET ESTIMATE NORMAL
[2024-06-03] MEDS: metoprolol succinate 25mg (24-HOUR) SR. Tablet PO SCH (08:00)
[2024-06-03] MEDS: lisinopril 10 MG tablet PO SCH (08:00)
[2024-06-03] MEDS: levoTHYROXINE 100mcg tablet PO SCH (08:40)
[2024-06-03 15:00] LABS: ABG BASE EXCESS -0.4 mmol/L (-2.0-2.0); ABG HCO3 26.6 mmol/L (22.0-26.0); ABG OXYGEN SATURATION 97.2 % (92-98.5); ABG PCO2 (T) 52.2 mmHg (35.0-48.0); ABG PH (T) 7.323 (7.340-7.440); ABG PO2 (T) 95.5 mmHg (75.0-100.0); ALLEN'S TEST POSITIVE; FCOHb 0.4 % (0.5-1.5); FHHb 2.8 % (0.0-5.0); FMetHb 0.3 % (0.0-1.5); FO2Hb 96.5 % (94-97); MODE bipap; PATIENT TEMPERATURE 36.5; TOTAL HEMOGLOBIN 14.1 G/dl (14.0-17.9)
[2024-06-03 16:15] LABS: D-DIMER 0.41 MG/L FEU (0-0.50)
[2024-06-03 16:31] LABS: PRO BRAIN NATRIURETIC PEPTIDE 1514 PG/ML (0-450)
[2024-06-03] MEDS: rivaroxaban 20mg tablet PO SCH (18:11)
[2024-06-04] VITALS (21 sets, daily range): BP systolic 113–137; BP diastolic 55–83; PULSE 62–87; RESP 12–22; TEMP 97.1–98.4; O2SAT 89–98
[2024-06-04 05:55] LABS: BASOPHILS % (AUTO) 0.1 % (0-1); EOSINOPHILS % (AUTO) 0 % (0-6); HEMATOCRIT 38.7 % (42.0-52.0); HEMOGLOBIN 12.4 g/dl (14.0-17.9); LYMPHOCYTES # (AUTO) 0.6 X10'3 (1.1-4.8); LYMPHOCYTES % (AUTO) 5.1 % (21-51); MEAN CORPUSCULAR HEMOGLOBIN 30.1 PG (27.0-31.0); MEAN CORPUSCULAR HGB CONC 32.2 g/dL (33.0-36.5); MEAN CORPUSCULAR VOLUME 93.7 FL (78-98); MEAN PLATELET VOLUME 8.8 FL (7.4-10.4); MONOCYTES # (AUTO) 0.5 X10'3 (0-0.9); MONOCYTES % (AUTO) 4.9 % (2-12); NEUTROPHILS # (AUTO) 9.7 X10'3 (1.8-7.7); NEUTROPHILS % (AUTO) 89.9 % (42-75); PLATELET COUNT 182 X10'3 (140-440); RED BLOOD COUNT 4.13 X10'6 (4.70-6.10); RED CELL DISTRIBUTION WIDTH 15.3 % (11.5-14.5); WHITE BLOOD COUNT 10.8 X10'3 (4.5-11.0)
[2024-06-04 06:04] LABS: ALANINE AMINOTRANSFERASE 16 U/L (12-78); ALBUMIN 2.3 G/DL (3.4-5.0); ALBUMIN/GLOBULIN RATIO 0.6 (1.1-1.5); ALKALINE PHOSPHATASE 59 IU/L (46-116); ANION GAP 6 (8-16); ASPARTATE AMINO TRANSFERASE 11 U/L (10-37); BILIRUBIN,TOTAL 0.1 MG/DL (0.1-1.0); BLOOD UREA NITROGEN 31 MG/DL (7-18); BUN/CREATININE RATIO 29.5 (10.0-20.0); CALCIUM 8.6 MG/DL (8.5-10.1); CHLORIDE 112 MMOL/L (99-107); CREATININE 1.05 MG/DL (0.60-1.10); GLUCOSE 182 MG/DL (70-104); POTASSIUM 3.8 MMOL/L (3.5-5.1); SODIUM 147 MMOL/L (135-145); TOTAL CARBON DIOXIDE 29.1 MMOL/L (24-32); TOTAL PROTEIN 6.4 G/DL (6.4-8.2); eCRCL 67 ML/MIN; eGFR 69 ML/MIN
[2024-06-04 13:28] LABS: ABG BASE EXCESS 0.4 mmol/L (-2.0-2.0); ABG HCO3 26.7 mmol/L (22.0-26.0); ABG OXYGEN SATURATION 91.8 % (92-98.5); ABG PH (T) 7.353 (7.340-7.440); ABG PO2 (T) 61.9 mmHg (75.0-100.0); ALLEN'S TEST POSITIVE; FCOHb 0.5 % (0.5-1.5); FHHb 8.1 % (0.0-5.0); FLOW 2 L/min; FMetHb 0.3 % (0.0-1.5); FO2Hb 91.1 % (94-97); MODE NASAL CANNULA; PATIENT TEMPERATURE 36.7; RESPIRATORY RATE 22 b/min; TOTAL HEMOGLOBIN 13.7 G/dl (14.0-17.9)
[2024-06-05] VITALS (14 sets, daily range): BP systolic 132–192; BP diastolic 85–114; PULSE 65–97; RESP 14–25; TEMP 96.9–97.9; O2SAT 92–99
[2024-06-05 07:17] LABS: BASOPHILS % (AUTO) 0.2 % (0-1); EOSINOPHILS % (AUTO) 0.3 % (0-6); HEMATOCRIT 41.1 % (42.0-52.0); LYMPHOCYTES # (AUTO) 0.8 X10'3 (1.1-4.8); LYMPHOCYTES % (AUTO) 5.9 % (21-51); MEAN CORPUSCULAR HEMOGLOBIN 29.6 PG (27.0-31.0); MEAN CORPUSCULAR HGB CONC 31.7 g/dL (33.0-36.5); MEAN CORPUSCULAR VOLUME 93.6 FL (78-98); MEAN PLATELET VOLUME 8.5 FL (7.4-10.4); MONOCYTES # (AUTO) 0.7 X10'3 (0-0.9); MONOCYTES % (AUTO) 4.9 % (2-12); NEUTROPHILS # (AUTO) 11.9 X10'3 (1.8-7.7); NEUTROPHILS % (AUTO) 88.7 % (42-75); PLATELET COUNT 175 X10'3 (140-440); RED BLOOD COUNT 4.39 X10'6 (4.70-6.10); RED CELL DISTRIBUTION WIDTH 15.1 % (11.5-14.5); WHITE BLOOD COUNT 13.4 X10'3 (4.5-11.0)
[2024-06-05 07:35] LABS: ALANINE AMINOTRANSFERASE 20 U/L (12-78); ALBUMIN 2.4 G/DL (3.4-5.0); ALBUMIN/GLOBULIN RATIO 0.6 (1.1-1.5); ALKALINE PHOSPHATASE 52 IU/L (46-116); ANION GAP 6 (8-16); ASPARTATE AMINO TRANSFERASE 19 U/L (10-37); BILIRUBIN,TOTAL 0.2 MG/DL (0.1-1.0); BLOOD UREA NITROGEN 32 MG/DL (7-18); CALCIUM 8.9 MG/DL (8.5-10.1); CHLORIDE 112 MMOL/L (99-107); CREATININE 0.94 MG/DL (0.60-1.10); GLUCOSE 143 MG/DL (70-104); MAGNESIUM 2.1 MG/DL (1.5-2.4); POTASSIUM 4.1 MMOL/L (3.5-5.1); SODIUM 148 MMOL/L (135-145); TOTAL CARBON DIOXIDE 29.6 MMOL/L (24-32); TOTAL PROTEIN 6.6 G/DL (6.4-8.2); eCRCL 75 ML/MIN; eGFR 78 ML/MIN
[2024-06-05 08:20] LABS: ANISOCYTOSIS 1+; PLATELET ESTIMATE NORMAL; TOTAL CELLS COUNTED 100
[2024-06-05] MEDS: hydrALAZINE 20mg/ml inj. IV PRN (17:55)
[2024-06-06] VITALS (16 sets, daily range): BP systolic 107–181; BP diastolic 56–122; PULSE 74–96; RESP 18–30; TEMP 97.2–98.3; O2SAT 90–98
[2024-06-06] MEDS: magnesium hydroxide 30ml (MOM) UD suspension PO PRN (02:16)
[2024-06-06] MEDS: metoprolol succinate 25mg (24-HOUR) SR. Tablet PO SCH (07:38)
[2024-06-06] MEDS: lisinopril 10 MG tablet PO SCH (07:40)
[2024-06-06 08:02] LABS: BASOPHILS % (AUTO) 0.1 % (0-1); EOSINOPHILS # (AUTO) 0.3 X10'3 (0-0.9); EOSINOPHILS % (AUTO) 1.4 % (0-6); HEMATOCRIT 49.7 % (42.0-52.0); HEMOGLOBIN 16.3 g/dl (14.0-17.9); LYMPHOCYTES # (AUTO) 0.9 X10'3 (1.1-4.8); MEAN CORPUSCULAR HEMOGLOBIN 30.4 PG (27.0-31.0); MEAN CORPUSCULAR HGB CONC 32.7 g/dL (33.0-36.5); MEAN PLATELET VOLUME 8.3 FL (7.4-10.4); MONOCYTES # (AUTO) 1.2 X10'3 (0-0.9); MONOCYTES % (AUTO) 5.2 % (2-12); NEUTROPHILS # (AUTO) 20.4 X10'3 (1.8-7.7); NEUTROPHILS % (AUTO) 89.3 % (42-75); PLATELET COUNT 166 X10'3 (140-440); RED BLOOD COUNT 5.35 X10'6 (4.70-6.10); RED CELL DISTRIBUTION WIDTH 15.2 % (11.5-14.5); WHITE BLOOD COUNT 22.8 X10'3 (4.5-11.0)
[2024-06-06 08:29] LABS: ALANINE AMINOTRANSFERASE 50 U/L (12-78); ALBUMIN 2.7 G/DL (3.4-5.0); ALBUMIN/GLOBULIN RATIO 0.6 (1.1-1.5); ALKALINE PHOSPHATASE 67 IU/L (46-116); ANION GAP 8 (8-16); ASPARTATE AMINO TRANSFERASE 51 U/L (10-37); BILIRUBIN,TOTAL 0.7 MG/DL (0.1-1.0); BLOOD UREA NITROGEN 21 MG/DL (7-18); BUN/CREATININE RATIO 32.3 (10.0-20.0); CALCIUM 9.2 MG/DL (8.5-10.1); CHLORIDE 101 MMOL/L (99-107); CREATININE 0.65 MG/DL (0.60-1.10); GLUCOSE 154 MG/DL (70-104); MAGNESIUM 2.1 MG/DL (1.5-2.4); SODIUM 140 MMOL/L (135-145); TOTAL CARBON DIOXIDE 31.1 MMOL/L (24-32); TOTAL PROTEIN 7.4 G/DL (6.4-8.2); eCRCL 108 ML/MIN; eGFR > 90 ML/MIN
[2024-06-06 08:31] LABS: POTASSIUM 4.1 MMOL/L (3.5-5.1)
[2024-06-06 09:20] LABS: ANISOCYTOSIS 1+; PLATELET ESTIMATE NORMAL; TOTAL CELLS COUNTED 100
[2024-06-06] MEDS: niCARDipine-NS 40mg/200ml IVPB 200 ML IV SCH (16:57)
[2024-06-06] MEDS: CefTRIAXone/D5W-Rocephin 1gm 50 ML IV SCH (20:35)
[2024-06-06] MEDS: furosemide 40mg/4ml inj IV SCH (20:35)
[2024-06-07] VITALS (15 sets, daily range): BP systolic 107–123; BP diastolic 65–82; PULSE 72–92; RESP 16–26; TEMP 96.7–98.1; O2SAT 91–98
[2024-06-07] MEDS ORDERED: LEVO-65 PO (11:44)
== END 2024-06-07 16:15 | DRG 871 ==
LOC: ER 13:07 → PCU 3S 18:27 → EDBEDREQ 21:29
PROVIDERS: ADMIT Family Medicine; ATTEND Family Medicine
PROC: 5A09357 Assistance with Respiratory Ventilation, Less than 24 Consecutive Hours, Continuous Positive Airway Pressure (ICD-10-PCS; principal; 2024-06-01)
PROC: 5A09357 Assistance with Respiratory Ventilation, Less than 24 Consecutive Hours, Continuous Positive Airway Pressure (ICD-10-PCS; 2024-06-02)
PROC: 5A09357 Assistance with Respiratory Ventilation, Less than 24 Consecutive Hours, Continuous Positive Airway Pressure (ICD-10-PCS; 2024-06-03)
PROC: 5A09357 Assistance with Respiratory Ventilation, Less than 24 Consecutive Hours, Continuous Positive Airway Pressure (ICD-10-PCS; 2024-06-04)
DX: A41.9 Sepsis, unspecified organism (principal); I50.33 Acute on chronic diastolic (congestive) heart failure; J15.9 Unspecified bacterial pneumonia; J96.01 Acute respiratory failure with hypoxia; J96.02 Acute respiratory failure with hypercapnia; J44.1 Chronic obstructive pulmonary disease with (acute) exacerbation; Z68.42 Body mass index [BMI] 45.0-49.9, adult; J44.0 Chronic obstructive pulmonary disease with (acute) lower respiratory infection; R62.7 Adult failure to thrive; H10.89 Other conjunctivitis; E78.00 Pure hypercholesterolemia, unspecified; E03.9 Hypothyroidism, unspecified; I11.0 Hypertensive heart disease with heart failure; E86.0 Dehydration; Z66 Do not resuscitate; G47.33 Obstructive sleep apnea (adult) (pediatric); I48.91 Unspecified atrial fibrillation; F32.A Depression, unspecified; Z79.899 Other long term (current) drug therapy; Z79.01 Long term (current) use of anticoagulants; Z95.0 Presence of cardiac pacemaker; Z82.49 Family history of ischemic heart disease and other diseases of the circulatory system
CPT/HCPCS: 36415; 36600; 71045; 71250; 74176; 80048; 80053; 82803; 82948; 83605; 83735; 83880; 83930; 84145; 84484; 85007; 85018; 85025; 85379; 85610; 85730; 87040; 87070; 87081; 87502; 87503; 87811; 93005; 93306; 94640; 94660; 94664; 94668; 94760; 96365; 96375; 97110; 97116; 97161; 97530; 97535; 99291; A4314; A5200; A6213; G0378; J0360; J0456; J0696; J1650; J1940; J2919; J3490; J7030; J7040; P9047

== ENCOUNTER 2024-08-31 16:38 | Inpatient (IN) | payer MEDICARE, MEDICAID ==
[~2024-08-31] VITALS: Ht 177.8 cm; Wt 141.5 kg
[~2024-08-31 16:38] MED LIST changes: +CARB-268 EACHEYE; +CEFD300C3 PO; +CHOL20004 PO; +DEXT15DR7 OP; +DOCU-148 PO; +FAMO20TA10 PO; -FAMO20TA8 PO; +IPRA3AMP9 NEB; -LOP12.5T PO; +METO-384 PO; -OXYGEN NASALCANN; -POTA-192 PO; +POTA-207 PO; +PRED10TA23 PO; +SEMA1PEN3 SUBCUT
[2024-08-31 18:58] LABS: BASOPHILS % (AUTO) 0.2 % (0-1); EOSINOPHILS # (AUTO) 0.1 X10'3 (0-0.9); EOSINOPHILS % (AUTO) 0.6 % (0-6); HEMATOCRIT 51.1 % (42.0-52.0); HEMOGLOBIN 16.6 g/dl (14.0-17.9); LYMPHOCYTES % (AUTO) 5.2 % (21-51); MEAN CORPUSCULAR HEMOGLOBIN 30.3 PG (27.0-31.0); MEAN CORPUSCULAR HGB CONC 32.6 g/dL (33.0-36.5); MEAN CORPUSCULAR VOLUME 93.2 FL (78-98); MEAN PLATELET VOLUME 8.5 FL (7.4-10.4); MONOCYTES # (AUTO) 1.2 X10'3 (0-0.9); MONOCYTES % (AUTO) 6.4 % (2-12); NEUTROPHILS # (AUTO) 16.7 X10'3 (1.8-7.7); NEUTROPHILS % (AUTO) 87.6 % (42-75); PLATELET COUNT 139 X10'3 (140-440); RED BLOOD COUNT 5.48 X10'6 (4.70-6.10); RED CELL DISTRIBUTION WIDTH 15.9 % (11.5-14.5)
[2024-08-31 19:14] LABS: ANION GAP 5 (8-16); BILIRUBIN,TOTAL 0.6 MG/DL (0.1-1.0); BLOOD UREA NITROGEN 25 MG/DL (7-18); CALCIUM 9.1 MG/DL (8.5-10.1); CHLORIDE 103 MMOL/L (99-107); CREATININE 1.39 MG/DL (0.60-1.10); GLUCOSE 112 MG/DL (70-104); POTASSIUM 4.2 MMOL/L (3.5-5.1); SODIUM 144 MMOL/L (135-145); TOTAL CARBON DIOXIDE 35.9 MMOL/L (24-32); eCRCL 47 ML/MIN; eGFR 50 ML/MIN
[2024-08-31 19:15] LABS: ALANINE AMINOTRANSFERASE 81 U/L (12-78); ALBUMIN 2.9 G/DL (3.4-5.0); ALBUMIN/GLOBULIN RATIO 0.7 (1.1-1.5); ALKALINE PHOSPHATASE 84 IU/L (46-116); ASPARTATE AMINO TRANSFERASE 37 U/L (10-37)
[2024-08-31 20:03] LABS: ABG BASE EXCESS 5.6 mmol/L (-2.0-3.0); ABG OXYGEN SATURATION 95.1 % (94.0-98.0); ABG PO2 (T) 70.7 mmHg (83.0-108.0); ALLEN'S TEST POSITIVE; FCOHb 0.1 % (0.5-1.5); FHHb 4.9 % (0.0-5.0); FLOW 3 L/min; FMetHb 0.1 % (0.0-1.5); FO2Hb 94.9 % (94.0-98.0); MODE NASAL CANNULA; PATIENT TEMPERATURE 36.8
[2024-08-31] MEDS ORDERED: magnesium sulf-water 4G/100mL 100 ML IV PRN (20:55)
[2024-08-31] MEDS ORDERED: potassium Cl 20 mEq SR tablet PO PRN ×2 (20:55)
[2024-08-31] MEDS ORDERED: magnesium sulf-water 2g/50mL 50 ML IV PRN (20:55)
[2024-08-31] MEDS ORDERED: potassium Cl 40MEQ/1/2NS 520ml 520 ML IV PRN (20:55)
[2024-08-31] MEDS ORDERED: magnesium Cl slow-release 64mg tablet PO PRN (20:55)
[2024-08-31] MEDS ORDERED: acetaminophen 325mg tablet PO PRN (20:55)
[2024-08-31] MEDS ORDERED: mag hydrox/Alum hydrox/simeth 30ml oral suspension PO PRN (20:55)
[2024-08-31] MEDS ORDERED: ondansetron/PF 4mg/2ml inj IV PRN (20:55)
[2024-08-31] MEDS ORDERED: morphine 2 MG/ML inj. syringe IV PRN (20:55)
[2024-08-31 21:16] LABS: PRO BRAIN NATRIURETIC PEPTIDE 792 PG/ML (0-450)
[2024-08-31 23:15] VITALS: BP 93/58; PULSE 73; RESP 15; TEMP 98.7; O2SAT 91
[2024-09-01 00:34] LABS: BILIRUBIN,URINE NEGATIVE (Neg); CLARITY,URINE CLEAR (Clear); COLOR,URINE YELLOW (Yellow); GLUCOSE, URINE NEGATIVE (Neg); KETONES,URINE NEGATIVE (Neg); LEUKOCYTE ESTERASE ,URINE MODERATE (Neg); NITRITES, URINE NEGATIVE (Neg); OCCULT BLOOD,URINE LARGE (Neg); PH,URINE 7.5 (4.8-8.0); PROTEIN,URINE 100 mg/dl (Neg)
[2024-09-01 00:39] LABS: UA COLLECTION TYPE NON-SPECIFIED
[2024-09-01 00:41] LABS: BACTERIA,URINE 1+ /HPF (Neg); RBC,URINE TNTC /HPF (0-2); SQUAMOUS EPITHELIAL CELL,UR FEW /LPF (FEW); WBC,URINE 20-30 /HPF (0-4)
[2024-09-01] MEDS: furosemide 40mg/4ml inj IV ONE (03:25)
[2024-09-01] MEDS: CefTRIAXone/D5W-Rocephin 1gm 50 ML IV SCH (03:25)
[2024-09-01 06:00] VITALS: BP 100/71; PULSE 58; RESP 18; TEMP 97.1; O2SAT 95
[2024-09-01 06:10] LABS: BASOPHILS % (AUTO) 0.1 % (0-1); EOSINOPHILS # (AUTO) 0.1 X10'3 (0-0.9); EOSINOPHILS % (AUTO) 0.3 % (0-6); HEMATOCRIT 49.1 % (42.0-52.0); HEMOGLOBIN 16.1 g/dl (14.0-17.9); LYMPHOCYTES # (AUTO) 1.1 X10'3 (1.1-4.8); LYMPHOCYTES % (AUTO) 5.3 % (21-51); MEAN CORPUSCULAR HEMOGLOBIN 30.9 PG (27.0-31.0); MEAN CORPUSCULAR HGB CONC 32.9 g/dL (33.0-36.5); MEAN PLATELET VOLUME 8.8 FL (7.4-10.4); MONOCYTES # (AUTO) 1.2 X10'3 (0-0.9); MONOCYTES % (AUTO) 5.7 % (2-12); NEUTROPHILS # (AUTO) 19.3 X10'3 (1.8-7.7); NEUTROPHILS % (AUTO) 88.6 % (42-75); PLATELET COUNT 146 X10'3 (140-440); RED BLOOD COUNT 5.22 X10'6 (4.70-6.10); RED CELL DISTRIBUTION WIDTH 16.5 % (11.5-14.5); WHITE BLOOD COUNT 21.8 X10'3 (4.5-11.0)
[2024-09-01 06:25] LABS: ALBUMIN 2.8 G/DL (3.4-5.0); ANION GAP 6 (8-16); BLOOD UREA NITROGEN 25 MG/DL (7-18); BUN/CREATININE RATIO 18.9 (10.0-20.0); CALCIUM 8.6 MG/DL (8.5-10.1); CHLORIDE 101 MMOL/L (99-107); CHOLESTEROL 168 MG/DL (0-200); CREATININE 1.32 MG/DL (0.60-1.10); GLUCOSE 116 MG/DL (70-104); HDL CHOLESTEROL 42 MG/DL (35-60); LDL CHOLESTEROL 97 MG/DL (50-100); MAGNESIUM 2.2 MG/DL (1.5-2.4); POTASSIUM 3.9 MMOL/L (3.5-5.1); SODIUM 139 MMOL/L (135-145); TOTAL CARBON DIOXIDE 32.4 MMOL/L (24-32); TRIGLYCERIDES 129 MG/DL (20-135); eCRCL 50 ML/MIN; eGFR 53 ML/MIN
[2024-09-01 06:47] LABS: OSMOLALITY 300 MOSM/K (280-300)
[2024-09-01 08:00] VITALS: RESP 18; O2SAT 95
[2024-09-01] MEDS: K and/or MAG REPLACEMENT MC SCH (08:00)
[2024-09-01] MEDS ORDERED: heparin, porcine 5000 units/ml vial SQ SCH (08:00)
[2024-09-01] MEDS: docusate sod 100mg capsule PO SCH (08:00)
[2024-09-01] MEDS: furosemide 20 MG/2 ML vial IV SCH (08:54)
[2024-09-01] MEDS: potassium Cl 20 mEq SR tablet PO SCH (08:57)
[2024-09-01] MEDS: metoprolol succinate 25mg (24-HOUR) SR. Tablet PO SCH (08:58)
[2024-09-01] MEDS: levoTHYROXINE 75mcg tablet PO SCH (08:58)
[2024-09-01] MEDS: lisinopril 10 MG tablet PO SCH (08:59)
[2024-09-01 10:00] VITALS: BP 101/65; PULSE 61; RESP 20; TEMP 97.7; O2SAT 95
[2024-09-01] MEDS: rivaroxaban 20mg tablet PO SCH (16:52)
[2024-09-01] MEDS: HYDROcodone/acetaminophen 5mg/325mg tablet PO PRN (16:53)
[2024-09-01 18:00] VITALS: BP 108/71; PULSE 56; RESP 17; TEMP 97.9; O2SAT 93
[2024-09-01] MEDS: magnesium hydroxide 30ml (MOM) UD suspension PO PRN (20:10)
[2024-09-01] MEDS: simvastatin 20mg tablet PO SCH (20:10)
[2024-09-01 22:00] VITALS: BP 115/76; PULSE 62; RESP 16; TEMP 98; O2SAT 93
[2024-09-02 06:00] VITALS: BP 117/80; PULSE 64; RESP 19; TEMP 98.1; O2SAT 94
[2024-09-02 06:49] LABS: BASOPHILS % (AUTO) 0.3 % (0-1); EOSINOPHILS # (AUTO) 0.3 X10'3 (0-0.9); EOSINOPHILS % (AUTO) 2.3 % (0-6); HEMATOCRIT 46.2 % (42.0-52.0); HEMOGLOBIN 15.1 g/dl (14.0-17.9); LYMPHOCYTES # (AUTO) 2.2 X10'3 (1.1-4.8); LYMPHOCYTES % (AUTO) 18.2 % (21-51); MEAN CORPUSCULAR HEMOGLOBIN 30.5 PG (27.0-31.0); MEAN CORPUSCULAR HGB CONC 32.6 g/dL (33.0-36.5); MEAN CORPUSCULAR VOLUME 93.5 FL (78-98); MEAN PLATELET VOLUME 8.9 FL (7.4-10.4); MONOCYTES # (AUTO) 0.9 X10'3 (0-0.9); MONOCYTES % (AUTO) 7.9 % (2-12); NEUTROPHILS # (AUTO) 8.5 X10'3 (1.8-7.7); NEUTROPHILS % (AUTO) 71.3 % (42-75); PLATELET COUNT 130 X10'3 (140-440); RED BLOOD COUNT 4.94 X10'6 (4.70-6.10); RED CELL DISTRIBUTION WIDTH 16.2 % (11.5-14.5); WHITE BLOOD COUNT 11.9 X10'3 (4.5-11.0)
[2024-09-02 09:11] LABS: ALANINE AMINOTRANSFERASE 105 U/L (12-78); ALBUMIN 2.5 G/DL (3.4-5.0); ALBUMIN/GLOBULIN RATIO 0.6 (1.1-1.5); ALKALINE PHOSPHATASE 76 IU/L (46-116); ANION GAP 3 (8-16); ASPARTATE AMINO TRANSFERASE 60 U/L (10-37); BILIRUBIN,TOTAL 0.4 MG/DL (0.1-1.0); BLOOD UREA NITROGEN 26 MG/DL (7-18); BUN/CREATININE RATIO 21.8 (10.0-20.0); CALCIUM 8.4 MG/DL (8.5-10.1); CHLORIDE 102 MMOL/L (99-107); CREATININE 1.19 MG/DL (0.60-1.10); GLUCOSE 89 MG/DL (70-104); POTASSIUM 3.7 MMOL/L (3.5-5.1); SODIUM 140 MMOL/L (135-145); TOTAL CARBON DIOXIDE 34.9 MMOL/L (24-32); TOTAL PROTEIN 6.5 G/DL (6.4-8.2); eCRCL 55 ML/MIN; eGFR 60 ML/MIN
[2024-09-02 10:00] VITALS: BP 104/64; PULSE 62; RESP 18; TEMP 98.4; O2SAT 95
[2024-09-02 18:00] VITALS: BP 99/73; PULSE 63; RESP 20; TEMP 97.3; O2SAT 90
[2024-09-02] MEDS: nystatin 15 GM powder TP SCH (20:23)
[2024-09-02 22:00] VITALS: BP 93/64; PULSE 81; RESP 17; TEMP 97.8; O2SAT 97
[2024-09-03 06:00] VITALS: BP 102/63; PULSE 62; RESP 18; TEMP 98.2; O2SAT 95
[2024-09-03 07:04] LABS: BASOPHILS # (AUTO) 0.1 X10'3 (0-0.2); BASOPHILS % (AUTO) 0.7 % (0-1); EOSINOPHILS # (AUTO) 0.4 X10'3 (0-0.9); EOSINOPHILS % (AUTO) 3.8 % (0-6); HEMOGLOBIN 15.2 g/dl (14.0-17.9); LYMPHOCYTES # (AUTO) 2.2 X10'3 (1.1-4.8); LYMPHOCYTES % (AUTO) 22.9 % (21-51); MEAN CORPUSCULAR HEMOGLOBIN 30.6 PG (27.0-31.0); MEAN CORPUSCULAR HGB CONC 32.4 g/dL (33.0-36.5); MEAN CORPUSCULAR VOLUME 94.5 FL (78-98); MEAN PLATELET VOLUME 9.1 FL (7.4-10.4); MONOCYTES # (AUTO) 0.6 X10'3 (0-0.9); MONOCYTES % (AUTO) 6.2 % (2-12); NEUTROPHILS # (AUTO) 6.4 X10'3 (1.8-7.7); NEUTROPHILS % (AUTO) 66.4 % (42-75); PLATELET COUNT 136 X10'3 (140-440); RED BLOOD COUNT 4.98 X10'6 (4.70-6.10); RED CELL DISTRIBUTION WIDTH 16.3 % (11.5-14.5); WHITE BLOOD COUNT 9.6 X10'3 (4.5-11.0)
[2024-09-03 07:29] LABS: ALBUMIN 2.5 G/DL (3.4-5.0); ANION GAP 5 (8-16); BLOOD UREA NITROGEN 30 MG/DL (7-18); BUN/CREATININE RATIO 24.8 (10.0-20.0); CALCIUM 8.7 MG/DL (8.5-10.1); CHLORIDE 105 MMOL/L (99-107); CREATININE 1.21 MG/DL (0.60-1.10); GLUCOSE 90 MG/DL (70-104); MAGNESIUM 2.3 MG/DL (1.5-2.4); POTASSIUM 3.9 MMOL/L (3.5-5.1); SODIUM 142 MMOL/L (135-145); TOTAL CARBON DIOXIDE 31.8 MMOL/L (24-32); eCRCL 54 ML/MIN; eGFR 58 ML/MIN
[2024-09-03 08:00] VITALS: RESP 16; O2SAT 95
[2024-09-03] MEDS: levoTHYROXINE 100mcg tablet PO SCH (08:57)
[2024-09-03 10:00] VITALS: BP 102/61; PULSE 66; RESP 18; TEMP 97.2; O2SAT 93
== END 2024-09-03 16:00 | DRG 871 ==
LOC: ER 16:39 → ED HOLD 20:55 → EDBEDREQ 23:06 → ORTHO 4S 23:15
PROVIDERS: ADMIT Student in an Organized Health Care Education/Training Program; ATTEND Family Medicine
DX: A41.89 Other specified sepsis (principal); G93.41 Metabolic encephalopathy; I50.33 Acute on chronic diastolic (congestive) heart failure; N17.0 Acute kidney failure with tubular necrosis; J15.9 Unspecified bacterial pneumonia; Z68.41 Body mass index [BMI] 40.0-44.9, adult; I13.0 Hypertensive heart and chronic kidney disease with heart failure and stage 1 through stage 4 chronic kidney disease, or unspecified chronic kidney disease; E03.9 Hypothyroidism, unspecified; F32.A Depression, unspecified; E78.00 Pure hypercholesterolemia, unspecified; J44.9 Chronic obstructive pulmonary disease, unspecified; K21.9 Gastro-esophageal reflux disease without esophagitis; G47.33 Obstructive sleep apnea (adult) (pediatric); N18.9 Chronic kidney disease, unspecified; I48.91 Unspecified atrial fibrillation; I25.10 Atherosclerotic heart disease of native coronary artery without angina pectoris; E66.01 Morbid (severe) obesity due to excess calories; Z79.01 Long term (current) use of anticoagulants; Z86.718 Personal history of other venous thrombosis and embolism; Z79.899 Other long term (current) drug therapy; Z86.73 Personal history of transient ischemic attack (TIA), and cerebral infarction without residual deficits; Z98.1 Arthrodesis status
CPT/HCPCS: 36415; 36600; 70450; 71045; 71250; 80048; 80053; 80061; 81001; 82140; 82570; 82803; 83605; 83735; 83880; 83930; 83935; 84145; 84300; 84484; 85018; 85025; 87040; 87077; 87081; 87088; 87186; 87207; 92508; 92616; 93005; 97110; 97116; 97161; 97530; 99285; A6154; A6250; A6449; G0378; J0696; J1940; J7030; J7040

== ENCOUNTER 2025-07-06 17:17 | Emergency (ER) | payer MEDICARE, MEDICAID ==
[~2025-07-06] VITALS: Ht 208.3 cm; Wt 135.0 kg
[~2025-07-06 17:17] MED LIST changes: +ALBU8HFA INH; +BUDE10.22 INH; -CARB-268 EACHEYE; -CEFD300C3 PO; -CHOL20004 PO; -DEXT15DR7 OP; -DOCU-148 PO; +DOCU100C40 PO; -FAMO20TA10 PO; +FAMO20TA8 PO; -FURO-150 PO; +HYDR-3686 PO; -IPRA3AMP9 NEB; -LEVO150T62 PO; +LEVO200T42 PO; +NYSPWD TP; -POTA-207 PO; -PRED10TA23 PO; -SEMA1PEN3 SUBCUT; -SIMV-42 PO
--- NOTE | 2025-07-06 18:09 | Physician Documentation ---
History of Present Illness ~ Chief Complaint: ALOC Stated Complaint: ALOC/FEVER Time Seen by MD: 18:03 Primary Medical Doctor: Unknown Mode of Arrival: EMS, Stretcher HPI Patient presents to the emergency room for evaluation of fever and altered mental status. He was sent from assisted living facility. He was admitted here recently a proximally two weeks ago for orthopedic fracture he sustained. Treatment was leg immobilization. Fever recorded to be 104 at sending facility. He is currently alert and oriented although they do report he is altered. He does also have history of increasing jaundice. He had denies any abdominal pain dysuria or cough. He denies any pain. Patient with history of hyperdynamic blood pressures ranging from over 200 to 70s in minutes. Medication Reconciliation Allergies: Coded Allergies: No Known Allergies (Unverified , 07/06/25) Scheduled Acetaminophen (Acetaminophen ER), 1 TAB PO Q8H, (Reported) Budesonide/Formoterol Fumarate (Symbicort 80-4.5 Mcg Inhaler), 2 PUFFS INH Q12H, (Reported) Docusate Sodium (Docusate Sodium), 1 CAP PO DAILY, (Reported) Famotidine (Famotidine), 1 TAB PO Q12H, (Reported) Hydroxyzine Hcl* (Atarax*), 1 TAB PO HS, (Reported) Levothyroxine Sodium (Levoxyl), 1 TAB PO DAILY, (Reported) Lisinopril (Lisinopril), 10 MG PO DAILY, (Reported) Metoprolol Succinate (Metoprolol Succinate), 1 TAB PO DAILY, (Reported) Nystatin (NYSTOP powder), 1 APPLIC TP BID, (Reported) Nystatin/Triamcin Cream* (Mycolog II Cream*), 1 APPLIC TOP Q12H, (Reported) Rivaroxaban (Xarelto), 1 TAB PO HS, (Reported) Scheduled PRN albuterol inhaler (Pro-Air Inhaler), 2 PUFFS INH Q4HPRN PRN for wheezing, (Reported) Past Medical History Past Medical History: CVA/TIA/Stroke, Atrial Fibrillation, Congestive Heart Failure, High Cholesterol, Hypertension, COPD, Hypothyroidism, Deep Vein Thrombosis, Extremity Fracture, Depression Past Surgical History: orthopedic surgeries, pacemaker Patient History: CVA MOTHER, Name: Caprice Fdriend, FH: CAD (coronary artery disease) FATHER, Name: LW friend, FH: obesity Sister Drug Use: none Lives In: Assisted Care Review of Systems ROS All review of systems negative except as per HPI Physical Exam Vital Signs: Temperature: 97.8, Source: Temporal, Heart Rate: 86, Respiratory Rate: 18, BP: 130/102, Pulse Oximetry: 95, Weight: 135.000 Physical Exam General: Patient is awake, alert, oriented x4 in no acute distress. Chronically ill-appearing Head: Normocephalic and atraumatic. Eyes: Conjunctival normal. EOMI. PERRL. ENT: Mucous membranes moist. Neck: Supple, trachea is midline. Chest: Clear to auscultation bilaterally without rales, rhonchi, or wheezes. There is no accessory muscle use or retractions. Cardiac: RRR without murmurs, gallops, or rubs. Abd: Soft, nondistended, nontender, with normoactive bowel sounds. No guarding, rebound, or rigidity. Extremities: Bilateral lower extremities with 2+ dependent edema. Right knee in immobilizer Skin: Warm and dry with no significant rash appreciated. Jaundice Neuro: Cranial nerves II-XII grossly intact. No focal neuro deficits. Progress Results/Orders Results/Orders Orders - CECILIO CHAVEZ MD Culture Blood (07/06/25 18:08) Chest,Single View (07/06/25 19:23) Covid19 Binax Poc Result Entry (07/06/25 18:08) Ultrasound Of Abdomen (07/06/25 20:08) Ct Chest Abdomen Pelvis (07/06/25 20:20) Piperacillin/Tazo 3.375gm/50ml (Zosyn 3. (07/07/25 03:00) Cult Urine + [place] Ct (07/07/25 00:53) Resuscitation Status (07/07/25 23:45) Completed Orders - CECILIO CHAVEZ MD Electrocardiogram (07/06/25 18:08) Cbc/Diff (07/06/25 18:08) MG (07/06/25 18:08) Chest,Single View (07/06/25 19:23) Procalcitonin (07/06/25 18:08) Lacticsepsis (07/06/25 18:08) Ammonia (07/06/25 18:34) CMP (07/06/25 18:28) Ultrasound Of Abdomen (07/06/25 20:08) Piperacillin/Tazo 3.375gm/50ml (Zosyn 3. (07/06/25 20:10) Vancomycin Inj (Vancomycin Inj) (07/06/25 20:09) Normal Saline 1000ml (0.9% Sodium Chlori (07/06/25 20:10) Ct Chest Abdomen Pelvis (07/06/25 20:20) Iohexol 300mg/Ml 100ml Inj. (Omnipaque-3 (07/06/25 20:21) Vancomycin/Ns 1 Gm Add-Piqua (Vancomyc (07/06/25 20:30) Ua W/Microscopic, Cult If Ind (07/06/25 23:57) CMP (07/07/25 22:14) Lipase (07/07/25 22:19) Resuscitation Status (07/07/25 23:42) Medications Received in ER Medications (Trade) Dose Ordered Sig/Olimpia Route PRN Reason Start Time Stop Time Status Last Admin Dose Admin (Nystop powder 15GM BOTTLE) 1 applic BID TP 07/07/25 20:00 07/07/25 21:08 1 APPLIC (Xarelto tablet) 20 mg HS PO 07/07/25 21:00 07/07/25 22:26 20 MG Vital Signs 07/06/25 07/06/25 07/06/25 07/06/25 17:34 17:41 18:26 18:33 Temp 97.8 Pulse 86 101 Resp 18 16 B/P (MAP) 130/102 103/55 (71) Pulse Ox 95 92 07/06/25 07/06/25 07/06/25 07/07/25 19:31 21:53 22:49 01:10 Pulse 89 80 91 90 Resp 17 17 18 17 B/P (MAP) 96/48 (64) 91/51 (64) 94/57 (69) 104/65 (78) Pulse Ox 98 98 97 98 07/07/25 07/07/25 07/07/25 07/07/25 02:35 04:02 05:32 06:13 Temp 98.4 Pulse 78 79 77 Resp 19 17 16 B/P (MAP) 113/60 (77) 97/58 (71) 107/71 (83) Pulse Ox 98 97 98 07/07/25 07/07/25 07/07/25 07/07/25 08:52 08:53 11:21 11:21 Temp 97.1 97.7 Pulse 72 65 Resp 18 18 B/P (MAP) 109/69 (82) 109/67 (81) Pulse Ox 97 98 O2 Flow Rate 2.0 0 07/07/25 07/07/25 07/07/25 07/07/25 13:05 13:30 13:30 14:12 Pulse 66 80 69 Resp 18 12 12 15 B/P (MAP) 104/61 (75) 102/67 (79) 105/66 (79) Pulse Ox 96 97 96 O2 Flow Rate 2.0 0 0 07/07/25 07/07/25 07/07/25 16:36 19:08 22:34 Temp 97.6 97.6 Pulse 67 65 65 Resp 15 14 B/P (MAP) 94/63 (73) 102/65 (77) 96/68 (77) Pulse Ox 98 97 96 O2 Flow Rate 0 0 Laboratory Tests Test 07/06/25 18:28 07/06/25 19:02 07/06/25 23:57 07/07/25 03:25 White Blood Count 13.5 H Red Blood Count 4.87 Hemoglobin 15.1 Hematocrit 44.6 Mean Corpuscular Volume 91.7 Mean Corpuscular Hemoglobin 31.0 Mean Corpuscular Hemoglobin Concent 33.8 Red Cell Distribution Width 16.8 H Platelet Count 176 Mean Platelet Volume 9.2 Neutrophils (%) (Auto) 93.1 H Lymphocytes (%) (Auto) 2.2 L Monocytes (%) (Auto) 3.7 Eosinophils (%) (Auto) 0.6 Basophils (%) (Auto) 0.4 Neutrophils # (Auto) 12.5 H Lymphocytes # (Auto) 0.3 L Monocytes # (Auto) 0.5 Eosinophils # (Auto) 0.1 Basophils # (Auto) 0.1 CBC Comment Sodium Level 141 Potassium Level 3.5 Chloride Level 105 Carbon Dioxide Level 27.6 Anion Gap 8 Blood Urea Nitrogen 16 Creatinine 0.77 Estimated GFR/1.73 m2 > 90 BUN/Creatinine Ratio 20.8 H Glucose Level 104 Lactic Acid Level 1.7 Calcium Level 8.7 Magnesium Level 1.6 Total Bilirubin 8.4 H Aspartate Amino Transf (AST/SGOT) 148 H Alanine Aminotransferase (ALT/SGPT) 198 H Alkaline Phosphatase 383 H Total Protein 6.2 L Albumin 2.3 L Globulin 3.9 Albumin/Globulin Ratio 0.6 L Procalcitonin 4.63 H Chemistry Comments Ammonia 25 Urine Specimen Description Non-specified Urine Color Octavia Urine Clarity Slightly cloudy Urine pH 5.5 Urine Specific [place] 1.015 Urine Protein Trace Urine Glucose (UA) 100 H Urine Ketones Trace H Urine Occult Blood Negative Urine Nitrite Urine Bilirubin Large Urine Urobilinogen >=8.0 H Urine Leukocyte Esterase Negative Urine RBC 0-2 Urine WBC 5-10 H Urine Squamous Epithelial Cells Few Urine Bacteria Few Urine Culture Indicated Indicated Volume Urine Centrifuged 10 ml Urine Comment SARS-CoV-2 Antigen (Rapid) Negative Test 07/07/25 10:18 07/07/25 22:19 White Blood Count 9.3 Red Blood Count 4.08 L Hemoglobin 12.6 L Hematocrit 37.8 L Mean Corpuscular Volume 92.5 Mean Corpuscular Hemoglobin 30.9 Mean Corpuscular Hemoglobin Concent 33.4 Red Cell Distribution Width 17.0 H Platelet Count 138 L Mean Platelet Volume 9.6 Neutrophils (%) (Auto) 82.5 H Lymphocytes (%) (Auto) 7.3 L Monocytes (%) (Auto) 8.2 Eosinophils (%) (Auto) 1.7 Basophils (%) (Auto) 0.3 Neutrophils # (Auto) 7.6 Lymphocytes # (Auto) 0.7 L Monocytes # (Auto) 0.8 Eosinophils # (Auto) 0.2 Basophils # (Auto) 0.0 CBC Comment Sodium Level 143 146 H Potassium Level 3.1 L 3.7 Chloride Level 109 H 110 H Carbon Dioxide Level 29.2 29.7 Anion Gap 5 L 6 L Blood Urea Nitrogen 16 16 Creatinine 0.75 0.93 Estimated GFR/1.73 m2 > 90 79 BUN/Creatinine Ratio 21.3 H 17.2 Glucose Level 95 91 Calcium Level 8.1 L 8.5 Magnesium Level 1.8 Albumin 1.8 L 1.9 L Chemistry Comments Total Bilirubin 5.0 H Aspartate Amino Transf (AST/SGOT) 72 H Alanine Aminotransferase (ALT/SGPT) 125 H Alkaline Phosphatase 287 H Total Protein 5.9 L Globulin 4.0 Albumin/Globulin Ratio 0.5 L Lipase 41 Microbiology Date/Time Source Procedure Growth Status 07/07/25 00:53 Urine Nonspecified Urine Culture - Preliminary Culture received. Resulted 07/06/25 19:02 Blood Arm Left Blood Culture - Preliminary NO GROWTH AFTER 1 DAY Resulted EKG/XRAY/CT/US/VASC/MRI EKG : Additional Comment EKG interpreted by myself shows time of 1845, rate 96, atrial fibrillation, normal axis, no ST changes CT : Impression Exam: CT CHEST ABDOMEN PELVIS CLINICAL HISTORY: suspected infection TECHNIQUE: CT of the chest, abdomen, and pelvis was performed with IV contrast. Coronal and sagittal reformatted images were performed for better depression of the anatomy. This exam was performed according to our departmental dose optimization program. Up-to-date CT equipment and radiation dose reduction techniques are utilized as appropriate. CTDI 35.4 DLP 1229 COMPARISON: CT CT CHEST ABDOMEN PELVIS on DOS: 06/07/25, CT CT CHEST on DOS: 08/31/24, CT CT CHEST ABDOMEN PELVIS on DOS: 06/03/24, CTA CHEST on DOS: 01/30/19 FINDINGS: CHEST: The thoracic aorta is normal in course and caliber. There are mild aortic arch atherosclerotic calcifications. There is a dual lead left chest wall pacing device. The heart is normal in size with 3-vessel coronary artery calcifications. No pe ricardial effusion is seen. No enlarged mediastinal, hilar, or axillary lymph node is present. The central airways are patent. There is no bronchiectasis. No suspicious pulmonary nodule or area of consolidation. There are mild dependent atelectatic changes within both lower lobes posteriorly. There is no pleural effusion present. ABDOMEN/PELVIS: The spleen, pancreas, adrenal glands, kidneys, liver, bladder, and prostate bladder unremarkable. There are multiple gallstones. The abdominal aorta is normal in caliber with moderate atherosclerotic calcifications. There is no free intraperitoneal air or fluid. There is no enlarged abdominal or pelvic lymph node. There is no bowel wall thickening or dilatation. BONES: No acute osseous abnormality is evident. IMPRESSION: No acute CT abnormality in the chest, abdomen, or pelvis. Cholelithiasis. Ultrasound : Impression Exam: ULTRASOUND OF ABDOMEN INDICATION: elevated bili TECHNIQUE: Multiple real-time sonographic images were obtained of the right upper quadrant. COMPARISON: US ULTRASOUND OF ABDOMEN on DOS: 06/25/25, US ULTRASOUND OF ABDOMEN on DOS: 06/07/25 FINDINGS: Exam significantly limited by body habitus and overlying bowel-gas. Hepatic echogenicity is normal. The liver measures 18 cm. The common duct measures 6 mm. The gallbladder is without evidence of stone or sludge. Wall thickness measures 6 mm. Reportedly positive sonographic Frausto's sign. The right kidney is not well visualized. The pancreas is not well visualized due to overlying bowel gas. No visualized ascites. IMPRESSION: 1. Exam compatible with acute calculus cholecystitis. Medical Decision Making Findings Presented to the emergency room sent by that [facility] facility for altered mental status and concerns for infectious process. Workup showed elevated white blood cell count along with elevated liver enzymes elevated procalcitonin. [place] scan as well as ultrasound ordered with findings consistent with cholecystitis. Zosyn administered. Patient has significantly elevated bilirubin and unfortunately we are unable to perform an MRCP that has patient has a pacemaker. Common bile duct is enlarged. Concern for obstructing stone. Our facility is not able to perform an ERCP we are arranging for transfer. Patient's white blood cell count is improving and patient is totally bilirubin has improved from 8-5. Differential Dx:Considerations: Include: CVA, encephalopathy, medication toxicity, infection - sepsis, infection - UTI Departure Disposition: 51 HOSPICE/MEDICAL FACILITY Impression: Primary Impression: Cholecystitis Additional Impression: Possible common bile duct stone Condition: Guarded Referrals: NO PRIMARY CARE PROVIDER (PCP) Critical Care Note Total Time (mins): 45 Critical Care Note The very real possibility of a deterioration of this patient's condition required the highest level of my preparedness for sudden, emergent intervention. I provided critical care services, which included medication orders, frequent reevaluations of the patient's condition and response to treatment, ordering and reviewing test results, and discussing the case with various consultants. Excludes time spent performing separately billable procedures. The critical care time associated with the care of the patient was 45 minutes not counting procedures Signature Scribe Signature: No scribe Attestation: The note accurately reflects work and decisions made by me.Cecilio Chavez MD 07/07/25 23:41 CECILIO CHAVEZ MD Jul 06, 2025 18:09
[2025-07-06 18:48] LABS: MEAN PLATELET VOLUME 9.2 FL (7.4-10.4); RED CELL DISTRIBUTION WIDTH 16.8 % (11.5-14.5)
[2025-07-06 19:01] LABS: CREATININE 0.77 MG/DL (0.60-1.10); eCRCL 116 ML/MIN; eGFR > 90 ML/MIN
[2025-07-06 19:08] LABS: TOTAL CARBON DIOXIDE 27.6 MMOL/L (24-32)
--- NOTE | 2025-07-06 19:42 | RADIOLOGY REPORT ---
CHEST RADIOGRAPH Indication: SEPSIS Technique: Single frontal view of the chest was obtained Comparison: DI CHEST,SINGLE VIEW on DOS: 06/24/25, DI CHEST,SINGLE VIEW on DOS: 06/07/25, DI CHEST,SINGLE VIEW on DOS: 08/31/24 FINDINGS: Lines and Tubes: None Lungs: No focal consolidation. Left lower lung zone and right Basilar Linear density. Pleura: No effusion. No pneumothorax. Cardiomediastinal contours: Borderline cardiomegaly with mild atherosclerotic calcification and uncoiling of the aorta. Left-sided approach dual lead pacemaker terminating within right atrium and right ventricle. Bones: No acute osseous abnormality. IMPRESSION: Left lower lung zone and right Basilar linear atelectasis.
[2025-07-06] MEDS: vancomycin inj 1,000 MG in normal saline 250ml IV soln 250 ML IV STA (20:09)
[2025-07-06] MEDS ORDERED: iohexol 300mg/ml 100ml inj. ONE (20:21)
[2025-07-06] MEDS: piperacillin/tazo 3.375gm/50ml 50 ML IV ONE (20:58)
[2025-07-06] MEDS: normal saline 1000ml 1,000 ML IV ONE (20:58)
--- NOTE | 2025-07-06 21:12 | RADIOLOGY REPORT ---
CLINICAL HISTORY: suspected infection TECHNIQUE: CT of the chest, abdomen, and pelvis was performed with IV contrast. Coronal and sagittal reformatted images were performed for better depression of the anatomy. This exam was performed according to our departmental dose optimization program. Up-to-date CT equipment and radiation dose reduction techniques are utilized as appropriate. CTDI 35.4 DLP 1229 COMPARISON: CT CT CHEST ABDOMEN PELVIS on DOS: 06/07/25, CT CT CHEST on DOS: 08/31/24, CT CT CHEST ABDOMEN PELVIS on DOS: 06/03/24, CTA CHEST on DOS: 01/30/19 FINDINGS: CHEST: The thoracic aorta is normal in course and caliber. There are mild aortic arch atherosclerotic calcifications. There is a dual lead left chest wall pacing device. The heart is normal in size with 3-vessel coronary artery calcifications. No pericardial effusion is seen. No enlarged mediastinal, hilar, or axillary lymph node is present. The central airways are patent. There is no bronchiectasis. No suspicious pulmonary nodule or area of consolidation. There are mild dependent atelectatic changes within both lower lobes posteriorly. There is no pleural effusion present. ABDOMEN/PELVIS: The spleen, pancreas, adrenal glands, kidneys, liver, bladder, and prostate bladder unremarkable. There are multiple gallstones. The abdominal aorta is normal in caliber with moderate atherosclerotic calcifications. There is no free intraperitoneal air or fluid. There is no enlarged abdominal or pelvic lymph node. There is no bowel wall thickening or dilatation. BONES: No acute osseous abnormality is evident. IMPRESSION: No acute CT abnormality in the chest, abdomen, or pelvis. Cholelithiasis.
[2025-07-06] MEDS: vancomycin/NS 1 GM ADD-VANTAGE 250 ML IV STA (21:27)
[2025-07-07 00:31] LABS: LEUKOCYTE ESTERASE ,URINE NEGATIVE (Neg); OCCULT BLOOD,URINE NEGATIVE (Neg)
[2025-07-07 00:49] LABS: UA COLLECTION TYPE NON-SPECIFIED
--- NOTE | 2025-07-07 00:49 | RADIOLOGY REPORT ---
INDICATION: elevated bili TECHNIQUE: Multiple real-time sonographic images were obtained of the right upper quadrant. COMPARISON: US ULTRASOUND OF ABDOMEN on DOS: 06/25/25, US ULTRASOUND OF ABDOMEN on DOS: 06/07/25 FINDINGS: Exam significantly limited by body habitus and overlying bowel-gas. Hepatic echogenicity is normal. The liver measures 18 cm. The common duct measures 6 mm. The gallbladder is without evidence of stone or sludge. Wall thickness measures 6 mm. Reportedly positive sonographic Frausto's sign. The right kidney is not well visualized. The pancreas is not well visualized due to overlying bowel gas. No visualized ascites. IMPRESSION: 1. Exam compatible with acute calculus cholecystitis.
[2025-07-07 00:53] LABS: SQUAMOUS EPITHELIAL CELL,UR FEW /LPF (FEW)
[2025-07-07] MEDS: piperacillin/tazo 3.375gm/50ml 50 ML IV SCH (03:01)
--- NOTE | 2025-07-07 09:38 | ELECTROCARDIOGRAPH REPORT ---
[facility] Test Date: 2025-07-06 Test Time: 18:46:06 Pat Name: MARILU VELEZ Department: EMERGENCY ROOM Room: Gender: M [employer] Operator: : [id number] Requested By: COURTNEY CRISOSTOMO Order Number: [id number] Reading MD: Measurements Intervals [place] Rate: 96 P: 0 DC: 0 QRS: 19 QRSD: 88 T: -83 QT: 364 QTc: 460 Interpretive Statements Atrial fibrillation Borderline low voltage, extremity leads Abnormal T, consider ischemia, diffuse leads Please click the below link to view image of tracing.
[2025-07-07] MEDS: normal saline 1000ML IV soln IVB ONE (09:59)
[2025-07-07 10:52] LABS: MEAN PLATELET VOLUME 9.6 FL (7.4-10.4); RED CELL DISTRIBUTION WIDTH 17.0 % (11.5-14.5)
[2025-07-07 10:57] LABS: CREATININE 0.75 MG/DL (0.60-1.10); TOTAL CARBON DIOXIDE 29.2 MMOL/L (24-32); eCRCL 119 ML/MIN; eGFR > 90 ML/MIN
[2025-07-07] MEDS ORDERED: magnesium sulf-water 4G/100mL 100 ML IV PRN (15:50)
[2025-07-07] MEDS ORDERED: magnesium sulf-water 2g/50mL 50 ML IV PRN (15:50)
[2025-07-07] MEDS ORDERED: potassium Cl 20 mEq SR tablet PO PRN (15:50)
[2025-07-07] MEDS ORDERED: potassium Cl 40MEQ/1/2NS 520ml 520 ML IV PRN (15:50)
[2025-07-07] MEDS ORDERED: magnesium Cl slow-release 64mg tablet PO PRN (15:50)
[2025-07-07] MEDS: potassium Cl 20 mEq SR tablet PO PRN (16:27)
[2025-07-07] MEDS: normal saline 1000ml 1,000 ML IV ONE (16:28)
[2025-07-07] MEDS ORDERED: NYST15CR50 TOP (19:17)
[2025-07-07] MEDS ORDERED: ACET-3669 PO (19:17)
[2025-07-07] MEDS: K and/or MAG REPLACEMENT MC SCH (20:42)
[2025-07-07 22:52] LABS: CREATININE 0.93 MG/DL (0.60-1.10); TOTAL CARBON DIOXIDE 29.7 MMOL/L (24-32); eCRCL 96 ML/MIN; eGFR 79 ML/MIN
[2025-07-08 02:20] VITALS: BP 102/72; PULSE 82; RESP 14; TEMP 97.6; O2SAT 99
[2025-07-08] MEDS ORDERED: levoTHYROXINE 100mcg tablet PO SCH (07:00)
[2025-07-08] MEDS ORDERED: metoprolol succinate 25mg (24-HOUR) SR. Tablet PO SCH (08:00)
== END 2025-07-08 01:27 | disposition short-term general hospital (02) ==
LOC: ER 17:18
DX: K80.10 Calculus of gallbladder with chronic cholecystitis without obstruction (principal); I11.0 Hypertensive heart disease with heart failure; I50.9 Heart failure, unspecified; E78.00 Pure hypercholesterolemia, unspecified; E03.9 Hypothyroidism, unspecified; I48.91 Unspecified atrial fibrillation; F32.A Depression, unspecified; J44.9 Chronic obstructive pulmonary disease, unspecified; Z86.718 Personal history of other venous thrombosis and embolism; Z86.73 Personal history of transient ischemic attack (TIA), and cerebral infarction without residual deficits; Z95.0 Presence of cardiac pacemaker; Z79.899 Other long term (current) drug therapy; Z79.51 Long term (current) use of inhaled steroids; Z20.822 Contact with and (suspected) exposure to COVID-19
CPT/HCPCS: 36415; 71045; 71260; 74177; 80048; 80053; 81001; 82140; 83605; 83690; 83735; 84145; 85025; 87040; 87088; 87811; 93005; 96361; 96365; 96366; 96368; 99285; A6213; A6590; J2543; J3373; J7030; J7050; Q9967